=== PATIENT | female | born 1980 | race Caucasian/White ===

== ENCOUNTER 2024-12-12 09:07 | Inpatient (IN) | payer OTHER, SELFPAY ==
[2024-12-12] VITALS (20 sets, daily range): BP systolic 107–172; BP diastolic 59–102; PULSE 56–89; RESP 14–24; TEMP 36.2–37; O2SAT 86–100; BMI 25.8
--- OUTSIDE RECORDS SUMMARY | 2024-12-12 09:09 | XMS_ITS | Clinical Summary ---
Author Organization [facility] Address [address] [place] [address] Care Team Providers Care Senior Scheduler Name Role Phone No Ref-Primary, Physician Primary Care Provider Allergies Active Allergy Reactions Criticality Noted Date Comments Hydromorphone Other (See Comments) 02/25/2016 Medications famotidine (PEPCID) 10 MG tablet Take 10 mg by mouth daily Active acetaminophen-ca ff-pyrilamine (MIDOL MENSTRUAL) 500-60-15 MG TABS per tablet Take 1-2 tablets by mouth 2 times daily Active folic acid (FOLVITE) 1 MG tabletIndication s:Alcohol-induce d acute pancreatitis, unspecified complication status,Nausea and vomiting, unspecified vomiting type,Moderate episode of recurrent major depressive disorder (H),Alcohol use disorder, severe, dependence (H) Take 1 tablet (1 mg) by mouth daily 30 tablet 4 Active melatonin 5 MG tabletIndication s:Alcohol-induce d acute pancreatitis, unspecified complication status,Nausea and vomiting, unspecified vomiting type,Moderate episode of recurrent major depressive disorder (H),Alcohol use disorder, severe, dependence (H) Take 1 tablet (5 mg) by mouth every evening 30 tablet 4 Active multivitamin w/minerals (THERA-VIT-M) tabletIndication s:Alcohol-induce d acute pancreatitis, unspecified complication status,Nausea and vomiting, unspecified vomiting type,Moderate episode of recurrent major depressive disorder (H),Alcohol use disorder, severe, dependence (H) Take 1 tablet by mouth daily 30 tablet 4 Active polyethylene glycol (MIRALAX) 17 GM/Dose powderIndication s:Alcohol-induce d acute pancreatitis, unspecified complication status,Nausea and vomiting, unspecified vomiting type,Moderate episode of recurrent major depressive disorder (H),Alcohol use disorder, severe, dependence (H) Take 17 g by mouth daily 510 g 4 Active senna-docusate (SENOKOT-S/PERIC OLACE) 8.6-50 MG tabletIndication s:Alcohol-induce d acute pancreatitis, unspecified complication status,Nausea and vomiting, unspecified vomiting type,Moderate episode of recurrent major depressive disorder (H),Alcohol use disorder, severe, dependence (H) Take 1 tablet by mouth 2 times daily as needed for constipation 60 tablet 4 Active Active Problems Problem Noted Date Diagnosed Date Alcohol-induced acute pancre atitis, unspecified complication status 04/27/2024 Nausea and vomiting, unspecified vomiting type 0 04/27/2024 Moderate episode of recurrent major depressive d isorder 10/10/2016 Narcotic addiction 09/15/2016 Pancreatitis 07/14/2016 Acute pancreatitis 07/14/2016 CARDIOVASCULAR SCREENING; LDL GOAL LESS THAN 160 07/17/2010 Back pain 01/04/2010 Encounter for supervision of other normal pregna ncy 08/31/2009 Overview (07/19/2015): Diagnosis updated by automated process. Provider to review and confirm. History of migraine during 07/23/2009 Family History Medical History Relation Comments Hypertension Maternal Grandmother Relation Status Comments Maternal Grandmother Social History Tobacco Use Types Packs/Day Years Used Date Smoking Tobacco: Every Day Cigarettes Smokeless Tobacco: Never Comments:3 or 4 a day. 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 Gender Identity Not on file Sexual Orientation Not on file Last Filed Vital Signs Vital Sign Reading Time Taken Comments Blood Pressure 142/88 05/02/2024 5:32 PM CDT Pulse 86 05/02/2024 5:32 PM CDT Temperature 36.8 C (98.3 F) 05/02/2024 5:32 PM CDT Respiratory Rate 20 05/02/2024 5:32 PM CDT Oxygen Saturation 98% 05/02/2024 8:09 AM CDT Inhaled Oxygen Concentration - - Weight 78.9 kg (173 lb 15.1 oz) 04/27/2024 8:19 PM CDT Height 177.8 cm (5' 10) 04/27/2024 8:19 PM CDT Body Mass Index 24.96 04/27/2024 8:19 PM CDT Plan of Treatment Health Maintenance Due Date Last Done Comments ADVANCE CARE PLANNING 1978 ANNUAL REVIEW OF HM ORDERS 1978 CT COLONOGRAPHY 1978 FIT 1978 FLEX SIG 1978 MAMMO SCREENING 1978 sDNA (Cologuard) 1978 YEARLY PREVENTIVE VISIT 1981 COLONOSCOPY 01/30/1988 COLORECTAL CANCER SCREENING 01/30/1988 HEPATITIS C SCREENING 01/30/1996 HEPATITIS A IMMUNIZATION (1 of 2 - Risk 2-dose series) 1997 HEPATITIS B IMMUNIZATION (1 of 3 - 19+ 3-dose series) 1997 Pneumococcal Vaccine: Pediatrics (0 to 5 Years) and At-Risk Patients (6 to 49 Years) (1 of 2 - PCV) 1997 PAP 10/22/2016 10/22/2013, 0201/2014, 07/15/2009 PHQ-9 03/16/2017 09/15/2016 LIPID 2018 DTAP/TDAP/TD IMMUNIZATION (2 - Td or Tdap) 09/12/2023 09/12/2013 COVID-19 Vaccine ( - season) 2024 INFLUENZA VACCINE (#1) 2024 08/19/2013 DIABETES SCREENING 05/02/2027 05/02/2024, 0 04/30/2024, 04/28/2024, Additional history exists ZOSTER IMMUNIZATION (1 of 2) 01/30/2028 HIV SCREENING Completed 07/13/2009 DEPRESSION ACTION PLAN Completed 10/25/2016 HPV IMMUNIZATION Aged Out No longer e ligible based on patient's age to complete this topic MENINGITIS IMMUNIZATION Aged Out No l onger eligible based on patient's age to complete this topic Procedures Procedure Name Priority Date/Time Associated Diagnosis Comments COMPREHENSIVE METABOLIC PANEL Add-On 05/02/2024 6:51 AM CDT PAP SMEAR - HIM PATIENT REPORTED Routine 10/22/2013 HCL HIV 1 & 2 ANTIBODY Routine 9 11:43 AM CDT Supervision of Other Normal from Last 3 Months or Most Recently Relevant to Health Maintenance Results * (ABNORMAL) Comprehensive metabolic panel (05/02/2024 6:51 AM CDT) Sodium 134(L) 135 - 145 mmol/L 05/02/2024 10:18 AM CDT [facility] Potassium 3.8 3.4 - 5.3 mmol/L 05/02/2024 10:18 AM CDT [facility] Carbon Dioxide (CO2) 21(L) 22 - 29 mmol/L 05/02/2024 10:18 AM CDT [facility] Anion Gap 16(H) 7 - 15 mmol/L 05/02/2024 10:18 AM CDT [facility] Urea Nitrogen 3.2(L) 6.0 - 20.0 mg/dL 05/02/2024 10:18 AM CDT [facility] Creatinine 0.43(L) 0.51 - 0.95 mg/dL 05/02/2024 10:18 AM CDT [facility] GFR Estimate >90 >60 mL/min/1.7 3m2 05/02/2024 10:18 AM CDT [facility] Comment:eGFR calculated usin 2020 CKD-EPI equation. Calcium 8.9 8.8 - 10.4 mg/dL 05/02/2024 10:18 AM CDT [facility] Comment:Reference intervals for this test were updated on 04/01/2024 to reflect our healthy population more accurately. There may be differences in the flagging of prior results with similar values performed with this method. Those prior results can be interpreted in the context of the updated reference intervals. Chloride 97(L) 98 - 107 mmol/L 05/02/2024 10:18 AM CDT [facility] Glucose 87 70 - 99 mg/dL 05/02/2024 10:18 AM CDT [facility] Alkaline Phosphatase 152(H) 40 - 150 U/L 05/02/2024 10:18 AM CDT [facility] AST 46(H) 0 - 45 U/L 05/02/2024 10:18 AM CDT [facility] ALT 73(H) 0 - 50 U/L 05/02/2024 10:18 AM CDT [facility] Protein Total 6.5 6.4 - 8.3 g/dL 05/02/2024 10:18 AM CDT [facility] Albumin 3.6 3.5 - 5.2 g/dL 05/02/2024 10:18 AM CDT [facility] Bilirubin Total 1.1 <=1.2 mg/dL 05/02/2024 10:18 AM CDT [facility] Blood STRUCTURE OF LEFT HAND / Unknown Venipuncture / Unknown 05/02/2024 6:51 AM CDT 05/02/2024 7:14 AM CDT us Jayce Gooden MD LAB - BLOOD ORDERABLES Final Res ult [facility] [address] [facility] (1st floor, no room number) [place] [address] * PAP Smear - HIM Patient Reported (10/22/2013) PAP Smear - HIM Patient Reported Negative EXTERNAL LAB 10/22/2013 Narrative EXTERNAL LAB - 10/22/2013 Please abstract the following data from this visit with this patient into the appropriate field in Epic: Pap smear done on this date: 10/22/13 (approximately), by this group: [facility] , results were Normal. us Patient Reported LABORATORY Final Result EXTERNAL LAB External Lab * HIV 1 & 2, SCREEN (07/13/2009 11:43 AM CDT) HIV 1&2 Antibody Negative [facility] 07/13/2009 11:4 3 AM CDT 07/13/2009 11:48 AM CDT us Payam Cardenas MD LABORATORY Final Result [address] [address] from Last 3 Months or Most Recently Relevant to Health Maintenance Insurance [facility] Advance Directives For more information, please contact: [phone] * Full Code (Latest Code Status on File) Date Activated Date Inactivated Comments 04/27/2024 11:22 PM 05/02/2024 8:01 PM All basic a nd advanced life-sustaining interventions are performed as appropriate Question Answer Comments Code status determined by: Discussion with patie nt/ legal decision maker * Full Code Date Activated Date Inactivated Comments 07/14/2016 6:32 AM 07/17/2016 6:56 PM Care Teams Senior Scheduler Relationship Specialty Start Date End Date No Ref-Primary, Physician PCP - General 05/01/24
--- OUTSIDE RECORDS SUMMARY | 2024-12-12 09:09 | XMS_ITS | Continuity of Care Document ---
Author Organization [facility] Address [address] [place] [address] [place] [address] Phone Care Team Providers Care Chainman Name Role Phone Will MD RAZA, Lenard Unavailable Unavailabl e Allergies, Adverse Reactions, Alerts Substance Reaction Status Criticality HYDROMORPHONE HCL Active No Informa tion Medications Medication Instructions Dosage Effective Dates (start - stop) Status Comments Neurontin 600 mg Tab 600 MG - Active Zoloft 100 mg Tab 100 MG - Active Flexeril 5 mg Tab - Active Valium 5 mg Tab - Active Chantix 1 mg Tab - Active FAMOTIDINE (unknown strength) Not Available - Active senna 8.6 mg Tab - Active calcium 500 mg Tab - Active VITAMIN D3 (unknown strength) Not Available - Active VITAMIN B-6 (unknown strength) Not Available - Active Procedures Procedure Date OFFICE/OUTPATIENT VISIT, EST Cancelled Appt Fee NEUROMUSCULAR REEDUCATION THERAPEUTIC EXERCISES OFFICE/OUTPATIENT VISIT, EST MANUAL THERAPY NEUROMUSCULAR REEDUCATION THERAPEUTIC EXERCISES PSYTX, OFF, 45-50 MIN OFFICE/OUTPATIENT VISIT, EST NEUROMUSCULAR REEDUCATION PT EVALUATION THERAPEUTIC EXERCISES PSY DX INTERVIEW OFFICE/OUTPATIENT VISIT, EST OFFICE/OUTPATIENT VISIT, EST OFFICE/OUTPATIENT VISIT, [facility] Advance Directives Directive Yes / No Effective Date File Name No Information Encounters Encounter Description Practice Location Reason(s) For Visit Diagnoses Date Provider Providers Copied on Encounter [facility], [address] [facility] [place], [place], [id number], [place] tel:[phone] [facility] [place] No Information 2 Will Lenard. [address] [place] [address] [place], [id number], [place]. tel:[phone] OFFICE/OUTPAT IENT VISIT, EST [facility], [address] [place] [address] [place], [place], [id number], [place] tel:[phone] [facility] [place] low back pain (chief complaint) Lumbago 2 Will Lenard. [address] [facility] [place], [place], [id number], [place]. tel:[phone] Referring Provider: Lenard Rodríguez, [address] [place] [address] [place], [address] . tel:[phone] [facility], [address] [place] [address] [place], [place], [id number], [place] tel:[phone] [place] [address] [facility] [place] No Information 2 No Information Referring Provider: Lenard Rodríguez, [address] [place] [address] [place], [address] . tel:[phone] [facility], [address] [place] [address] [place], [place], [id number], [place] tel:[phone] [facility] [place] back pain (chief complaint) No Information No Information Referring Provider: Lenard Rodríguez, [address] [place] [address] [place], [address] . tel:[phone] OFFICE/OUTPAT IENT VISIT, EST [facility], [address] [place] [address] [place], [place], [id number], [place] tel:[phone] [facility] [place] low back pain (chief complaint) Lumbago 2 [facility]. [facility] [place], [id number], [place]. tel:[phone] Referring Provider: Lenard Rodríguez, [address] [place] [address] [place], [address] . tel:[phone] [facility], [address] [place] [address], [id number], [place] tel:[phone] [facility] [place] back pain (chief complaint) No Information 2 No Information Referring Provider: Lenard Rodríguez, [address] [place], [place] [address], [address] . tel:[phone] [facility], [address] [place] [address], [id number], [place] tel:[phone] [facility] [place] Major depressive affective disorder, single episode, in partial or unspecified remissionOther , pain disorder related to psychological factors 2 Anamaria Dominguez. [address] [place] [address], [id number], [place]. tel:[phone] Referring Provider: Lenard Rodríguez, [address] [place], [place] [address], [address] . tel:[phone] OFFICE/OUTPAT IENT VISIT, EST [facility], [address] [place] [address], [id number], [place] tel:[phone] [facility] [place] low back pain (chief complaint) Lumbago 2 Will Lenard. [address] [place] [address], [id number], [place]. tel:[phone] Referring Provider: Lenard Rodríguez, [address] [place], [place] [address], [address] . tel:[phone] [facility], [address] [place] [address], [id number], [place] tel:[phone] [facility] [place] back pain (chief complaint) No Information 2 No Information Referring Provider: Lenard Rodríguez, [address] [place], [place] [address], [address] . tel:[phone] [facility], [address] [place] [address], [id number], [place] tel:[phone] [facility] [place] Major depressive affective disorder, single episode, in partial or unspecified remissionOther , pain disorder related to psychological factors 2 Anamaria Dominguez. [address] [place] [address], [id number], [place]. tel:[phone] Referring Provider: Lenard Rodríguez, [address] [place] [address] [place], [address] . tel:[phone] OFFICE/OUTPAT IENT VISIT, [facility], [address] [place] [address], [id number], [place] tel:[phone] [facility] [place] low back pain (chief complaint) Lumbago 2 Will Lenard. [address] [place] [address], [id number], [place]. tel:[phone] Referring Provider: Lenard Rodríguez, [address] [place], [place] [address], [address] . tel:[phone] OFFICE/OUTPAT IENT VISIT, [facility], [address] [place] [address], [id number], [place] tel:[phone] [facility] [place] low back pain (chief complaint) Lumbago 2 Will Lenard. [address] [place] [address], [id number], [place]. tel:[phone] Referring Provider: Lenard Rodríguez, [address] [place], [place] [address], [address] . tel:[phone] OFFICE/OUTPAT IENT VISIT, [facility], [address] [place] [address], [id number], [place] tel:[phone] [facility] [place] low back pain (chief complaint) Lumbago 2 Will Lenard. [address] [place] [address], [id number], [place]. tel:[phone] Referring Provider: Lenard Rodríguez, [address] [place], [place] [address], [address] . tel:[phone] Family History Family Member Type Diagnosis Age At Onset Mother Problem (finding) back pain after trauma Sister Problem (finding) back pain after trauma Payers Payer name Insurance type Covered republican ID Chalino hawkins(danielle) [employer] [id number] Social History Type Description Quantity Date Captured Comments Sex Female Smoking Status No Information Chief Complaint And Reason For Visit No Information Reason For Referral Reason For Referral No Information History Of Present Illness Encounter Date Complaint History Of Prese nt Illness No Information Functional Status Date Functional Assessmen t No Information Instructions Date Instruction Additional Infor mation Change medication Medications counted, patient has self-escalated dose. Continue current medication Medications counted, patient has self-escalated dose. Continue current medication Medications counted, patient has self-escalated dose. Continue current medication Medications counted, patient is on track. New medication is prescribed Depression Screen Oswestry Score Assessments Type Assessment Date No Information Patient Care Teams Name Effective Dates (start - stop) Status Members No Information
--- OUTSIDE RECORDS SUMMARY | 2024-12-12 09:09 | XMS_ITS | Continuity of Care Document ---
Author Organization [facility] Address [address] [place] [address] Phone Care Team Providers Care Recycler Name Role Phone Unavailable Unavailable Unavailable Medications Medication Instructions Dosage Effective Dates (start - stop) Status Comments oxycodone 5 mg tablet takes as needed. - Active tramadol 50 mg tablet takes as needed. - Active sertraline 100 mg Tab take 1 Tablet (100MG) by ORAL route every day 100 MG - Active acetaminophen 500 mg Cap take 4 Capsule (2000MG) by ORAL route every day as needed 2000 MG - Active gabapentin 800 mg Tab take 1 Tablet by Oral route 3 times every day 1 Tablet - Active oxycodone 5 mg tablet take 1 tablet by oral route every 8 hours as needed - No Longer Active Procedures Procedure Date Offic/outpt E&m Estab Mod-al 2 14 Offic/outpt [facility] 3 Offic/outpt E&m Estab Mod-al 2 13 Offic/outpt E&m Estab Mod-al 2 13 Offic/outpt E&m Estab Lowmod 3 Offic/outpt E&m Estab Lowmod 3 Offic/outpt E&m Estab Lowmod 3 Inject SI Joint Arthrography Lo Osm Contr Mat (200-249mg) Depomedrol 80mg Offic/outpt E&m Estab Mod-hi 2 13 Drug Screen: Mx Drug Classes Handl/convey Specmn-offic To L 13 Offic/outpt E&m Estab Mod-hi 2 13 Inj Anes Facet Jt; Lumb/sac-1st Level Ap Inj Anes Facet Jt; Lumb/sac-2nd Level Ap Lo Osm Contr Mat (200-249mg) Offic/outpt E&m Estab Low-mod 3 Offic/outpt E&m Estab Mod-hi 2 13 Offic/outpt E&m Estab Mod-hi 2 13 Inj Anes Facet Jt; Lumb/sac-2nd Level Ja Inj Anes Facet Jt; Lumb/sac-1st Level Ja Depomedrol 80mg Offic/outpt E&m Estab Mod-hi 2 12 Inject SI Joint Arthrography Lo Osm Contr Mat (200-249mg) Depomedrol 80mg Offic/outpt E&m Estab Low-mod 2 Offic Cons New/estab Mod-hi 60 12 QA DONE Advance Directives Directive Yes / No Effective Date File Name No Information Encounters Encounter Description Practice Location Reason(s) For Visit Diagnoses Date Provider Providers Copied on Encounter Offic/outpt E&m Estab Mod-hi [address] [facility], [address], [place], [place], [id number], tel:[phone] [facility] No Information 4 No Information Referring Provider: Faith Rivers MD P, [address] [place], [address]. tel:[phone] Offic/outpt E&m Estab Low-mod [facility], [address], [place], [place], [id number], tel:[phone] [facility] No Information 3 No Information Referring Provider: Faith Rivers MD P, [address] [place], [address]. tel:[phone] Offic/outpt E&m Estab Mod-hi 2 [facility], [address], [place], [place], [id number], [place] tel:[phone] [facility] No Information 3 No Information Referring Provider: Faith Rivers MD P, [address] [place], [address]. tel:[phone] Offic/outpt E&m Estab Mod-hi 2 [facility], [facility], [address] [facility] [address] [place], [place], [id number], [place] tel:[phone] [facility] No Information 3 No Information Referring Provider: Faith Rivers MD P, [address] [place], [address]. tel:[phone] Offic/outpt E&m Estab Low-mod [facility], [facility], [address], [place], [place], [id number], [place] tel:[phone] [facility] No Information 3 No Information Referring Provider: Faith Rivers MD P, [address] [place], [address]. tel:[phone] Offic/outpt E&m Estab Low-mod [facility], [facility], [address], [place], [place], [id number], [place] tel:[phone] [facility] No Information 3 Mindi Burden. [address] [place] [address], [address]. tel:[phone] Referring Provider: Faith Rivers MD P, [address] [place], [address]. tel:[phone] Offic/outpt E&m Estab Low-mod [facility], [facility], [address], [place], [place], [id number], [place] tel:[phone] [facility] No Information 3 Mindi HOME INSPECTOR Jenise. [address] [place], [address]. tel:[phone] Referring Provider: Faith Rivers MD P, [address] [facility] [place], [address]. tel:[phone] [facility], [facility], [address], [place], [place], [id number], [place] tel:[phone] [facility] No Information 3 Jey Kevin. [address], [place], [id number], [place]. tel:[phone] Referring Provider: Faith Rivers MD P, [address] [facility] [place], [address]. tel:[phone] Offic/outpt E&m Estab Mod-hi [address] [facility], [facility], [address], [place], [place], [id number], [place] tel:[phone] [facility] No Information 3 Michael Herring. [address] [place], [address], [place]. Referring Provider: Faith Rivers MD P, [address] [facility] [place], [address]. tel:[phone] Offic/outpt E&m Estab Mod-hi [address], [facility], [address], [place], [place], [id number], [place] tel:[phone] [facility] No Information 3 Mindi Burden. [address] [place], [address]. tel:[phone] Referring Provider: Faith Rivers MD P, [address] [place], [address]. tel:[phone] [facility] [address], [place], [place], [id number], [place] tel:[phone] [facility] No Information 3 Jey Kevin. [address], [place], [place], [id number], [place]. tel:[phone] Referring Provider: Faith Caballero, [address] [place], [address]. tel:[phone] Offic/outpt E&m Estab Low-mod [facility], [address], [place], [place], [id number], [place] tel:[phone] [facility] No Information 3 [place] HOME INSPECTOR Jenise. [address] [place], [address]. tel:[phone] Referring Provider: Faith Caballero, [address] [place], [address]. tel:[phone] Offic/outpt E&m Estab Mod-hi 2 [facility], [address], [place], [place], [id number], [place] tel:[phone] [facility] No Information 3 Mindi HOME INSPECTOR Jenise. [address] [place], [address]. tel:[phone] Referring Provider: Faith Rivers MD P, [address] [place], [address]. tel:[phone] Offic/outpt E&m Estab Mod-hi 2 [facility], [address], [place], [place], [id number], [place] tel:[phone] [facility] No Information 3 Mindi Burden. [address] [place] [address], [address]. tel:[phone] Referring Provider: Faith Caballero, [address] [place], [address]. tel:[phone] [facility], [address], [place], [place], [id number], [place] tel:[phone] [facility] No Information 3 Jey Kevin. [address], [place], [place], [id number], [place]. tel:[phone] Referring Provider: Faith Caballero, [address] [place], [address]. tel:[phone] Offic/outpt E&m Estab Mod-hi [address], [facility], [address], [place], [place], [id number], [place] tel:[phone] [facility] No Information 2 Mindi Burden. [address] [place] [address], [address]. tel:[phone] Referring Provider: Faith Caballero, [address] [place], [address]. tel:[phone] [facility], [address], [place], [place], [id number], [place] tel:[phone] [facility] No Information 2 Uriel Church. [address], [place], [place], [id number]. tel:[phone] Referring Provider: Faith Caballero, [address] [place], [place], [address]. tel:[phone] Offic/outpt E&m Estab Low-mod [facility], [facility], [address], [place], [place], [id number], [place] tel:[phone] [facility] No Information 2 Mindi GOLDSMITH Jenise. [address] [place], [address]. tel:[phone] Referring Provider: Faith Rivers MD P, [address] [place], [address]. tel:[phone] Offic Cons New/estab Mod-hi [address], [facility], [address], [place], [place], [id number], tel:[phone] [facility] No Information 2 Michael Herring. [address] [place], [address], [place]. Referring Provider: Faith Rivers MD P, [address] [place], [address]. tel:[phone] Family History Family Member Type Diagnosis Age At Onset No Information Payers Payer name Insurance type Covered libertarian ID Chalino hawkins(s) [facility] [id number] Social History Type Description Quantity Date Captured Comments Alcohol Use Details Caffeine Use Details Unknown Tobacco Use Status No Information Smoking Status Smoker, current stat unknown Non-Smoking Tobacco Use Details : No Details Available : No Details Available Sex Female Chief Complaint And Reason For Visit No Information Reason For Referral Reason For Referral No Information History Of Present Illness Encounter Date Complaint History Of Prese nt Illness No Information Functional Status Date Functional Assessmen t No Information Instructions Date Instruction Additional Infor mation No Information Assessments Type Assessment Date No Information Patient Care Teams Name Effective Dates (start - stop) Status Members No Information
--- OUTSIDE RECORDS SUMMARY | 2024-12-12 09:09 | XMS_ITS | Clinical Summary ---
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 1 Device 0 5 Active oxyCODONE 10 mg tablet Take 10 mg by mouth every 6 hours if needed for Pain. Active tiZANidine (ZANAFLEX) 2 mg tablet Take 2-4 mg by mouth. PRN BID Active gabapentin (NEURONTIN) 300 mg capsule 3 6 Active amoxicillin (AMOXIL) 500 mg capsuleIndicatio ns:H/O oral surgery Take 1 capsule by mouth 3 times daily. 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 Designated pharmacy: [facility] Prescribing physician: Silvestre Diagnosis: chronic low back pain Placenta, retained 02/25/2010 Abnormal head MRI 05/26/2009 Overview (05/26/2009): congenital vein malformation Tobacco use disorder 10/02/2008 Scoliosis (and kyphoscoliosis), idiopathic 04/09 Backache, unspecified Overview (04/09/2008): cervical and lumbar, 2006 Resolved Problems Problem Noted Date Diagnosed Date Resolved Date Other anxiety states 05/29/2012 012 Unspecified episodic mood disorder 05/21/2012 05/29/2012 Overview (05/21/2012): Rule out full spectrum Bipolar II Immunizations Immunization Administration Dates Next Due Influenza, IIV3 (Age >=3 years) 08/19/2013 Tdap 09/12/2013 Family History Medical History Relation Name Comments Alcohol/Drug Brother 4 Psychiatric illness Father Depressi on Psychiatric illness Maternal Aunt Depress ion Psychiatric illness Maternal Grandmother Depression Alcohol/Drug Maternal Uncle Psychiatric illness Mother ?mood d/ o Genetic Other mom, father dep ression, HTN~brother CD~MGF colon CA~MGM CAD~PGF DM2 Psychiatric illness Sister 2 BPAD II Relation Name Status Comments Brother 1 Alive Brother 2 Alive Brother 3 Alive Brother 4 Child Alive x 2 Father (Age 48) stroke Maternal Aunt Maternal Grandmother Maternal Uncle Mother Alive Other Sister 1 Alive Sister 2 Social History Tobacco Use Types Packs/Day Years Used Date Smoking Tobacco: Every Day Cigarettes Smokeless Tobacco: Never Tobacco Cessation:Ready to Q uit: Yes; Counseling Given: Yes Comments:Outside the home Alcohol Use Standard Drinks/Week Comments Yes 0 (1 standard drink = 0.6 oz pure alcohol) Rare drink not to intoxication, use as negative impacts mood, 3 DUIs last in 2008 (no ongoing legal issues), vol CD tx x1 Comments No Sex and Gender Information Value Date Recorded Sex Assigned at Not on file Legal Sex Female 5:25 AM SCALP SPECIALIST Gender Identity Not on file Sexual Orientation Not on file Obstetrics History Para Term AB IAB SAB Ectopic Multiple Livin g Live Births 1 1 1 0 0 0 0 0 0 1 Date Outcome GA Total Labor Labor/2nd/3rd Weight Sex Type Anes PTL Kaelyn A1 A5 Name Clin Term Last Filed Vital Signs Vital Sign Reading Time Taken Comments Blood Pressure 145/83 03/06/2016 4:19 PM CDT Pulse 109 03/06/2016 4:19 PM CDT Temperature 36.6 C (97.8 F) 12/11/2014 7:25 PM CDT Respiratory Rate 16 12/11/2014 7:25 PM CDT Oxygen Saturation 96% 12/11/2014 7:25 PM CDT Inhaled Oxygen Concentration - - Weight 101.7 kg (224 lb 4.8 oz) 03/06/2016 4:19 PM CDT Height 177.8 cm (5' 10) 10/22/2013 1:46 PM SCALP SPECIALIST Body Mass Index 32.18 10/22/2013 1:46 PM SCALP SPECIALIST Plan of Treatment Health Maintenance Due Date Last Done Comments Depression screening for age 12+ 1990 HIV for age 15-65 1993 BMI (ht and wt on same day) for age 18+ 01/30/1996 Hepatitis C screening for age 18-79 01/30/1996 Pap test for age 21-65 10/22/2016 4, 04/23/2009, 04/09/2008, Additional history exists Colonoscopy through age 75 2023 Lipids for age 45-75 2023 Mammogram for age 45-75 2023 Tetanus booster 09/12/2023 09/12/2013 COVID-19 vaccine series (2023- season) 2024 Influenza Vaccine (#1) 2024 08/19/2013 Tdap Completed 09/12/2013 Pneumococcal series for age 6-49 Aged Out No longer eligible based on patient's age to complete this topic Medical Devices Implanted Type Area Pharmacists Device Identifier Shelf Expiration Date Model / Serial / Lot Kit Infuse - [id number] Implanted:Qty: 1 on 12/15/2011 at [facility] Bilateral: Lumbar Vertebrae [employer] 07/17/2014 [id number]# / / [id number] Capstone 8x22 - S- Implanted:Qty: 1 on 12/15/2011 at [facility] Bilateral: Lumbar Vertebrae [employer] 06/02/2018 [id number]# / - / [id number] Capstone 12x22 - [id number] Implanted:Qty: 1 on 12/15/2011 at [facility] Bilateral: Lumbar Vertebrae [employer] 07/23/2018 [id number]# / / [id number] Screw Sextant 6.5x35 - [id number] Implanted:Qty: 2 on 12/15/2011 at [facility] Bilateral: Lumbar Vertebrae [employer] [id number]# / / - Description:load # [id number] Screw Sextant 6.5x40mm - [id number] Implanted:Qty: 2 on 12/15/2011 at [facility] Bilateral: Lumbar Vertebrae [employer] [id number]# / / - Description:load [id number] Set Screw Sextant - [id number] Implanted:Qty: 4 on 12/15/2011 at [facility] [employer] [id number]# / / - Description:load [id number] Jayro Sextant 65mm Ti - [id number] Implanted:Qty: 2 on 12/15/2011 at [facility] Bilateral: Lumbar Vertebrae [employer] [id number]# / / - Description:load [id number] Procedures Procedure Name Priority Date/Time Associated Diagnosis Comments 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 PAP SCREEN IMAGED Routine 10/22/2013 2:24 PM SCALP SPECIALIST Screening for cervical cancer from Last 3 Months or Most Recently Relevant to Health Maintenance Results * 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 PREP PAP SCREEN IMAGED (10/22/2013 2:24 PM SCALP SPECIALIST) CYTOLOGY CYTOPATHOLOGY REPORT [facility] Status: Final Status [id number] CLINICAL INFORMATION Last Date of LMP :10/09/13 Last Pap Date :04/23/2009 Last Pap Result :NIL ABN [place]/Bx Past 5 YRS :None Hormone Usage :None Menstrual Status :Regular Periods [place]/Bx done today :No Additional Information :None given HPV Request :HPV if ASCUS SPECIMEN SOURCE :Cervical/vaginal ThinPrep Vial, screening SPECIMEN ADEQUACY :Satisfactory for evaluation Endocervical component present. INTERPRETATION/RES ULT Negative for intraepithelial lesion or malignancy (NIL) Cytology 1st Screener :caitlyn Signed by :caitlyn This specimen was screened by the FDA approved ThinPrep Imaging System and manually reviewed. NOTE: The Pap test is a screening technique, not a diagnostic procedure. It is used primarily to screen for squamous cancers and precursor lesions. Published studies have shown that it is subject to both false negative and false positive results. The pap test should not be used as the sole means to diagnose or exclude pre-malignant and malignant lesions. COLLECTED:10/22/13 ACCESSIONED: 10/23/13 SIGNED: 10/29/13 [facility] [place] CODE NIL [facility] Tissue specimen (specimen) (Cervical/Vagina l) 10/22/2013 2:24 PM SCALP SPECIALIST 10/22/2013 2:23 PM SCALP SPECIALIST us Faith Rivers MD PATHOLOGY/CYTOLOGY Final Resul t [facility] [place]NAL [place]IP [id number] [place] [address] from Last 3 Months or Most Recently Relevant to Health Maintenance Insurance [employer] Advance Directives * Full Code (Latest Code Status on File) Date Activated Date Inactivated Comments 12/15/2011 4:06 PM 12/19/2011 3:22 PM * Full Code Date Activated Date Inactivated Comments 12/15/2011 3:54 AM 12/15/2011 4:06 PM 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 PCP - General 01/08/17
[2024-12-12] MEDS: ONDANSETRON 2 MG/ML inj 4 MG IVP (09:22)
[2024-12-12] MEDS: fentaNYL 100 MCG/2 ML inj 50 MCG IVP ×3 (09:24→13:04)
[2024-12-12 09:33] LABS: Basophils Percent Auto 0.1 % (0.0-3.0); Eosinophils Percent Auto 0.5 % (0.0-7.0); Hematocrit 40.1 % (33.0-51.0); Hemoglobin* 13.1 gm/dL (12.0-16.0); Immature Granulocytes Pct Auto 0.2 %; Lymphocytes Percent Auto 12.6 % (20-44); Mean Corpuscular HGB Conc 33 gm/dL (32-36); Mean Corpuscular Hemoglobin 33 pg (26-34); Mean Corpuscular Volume 102 fL (80-100); Monocytes Percent Auto 5.6 % (0.0-11.0); Platelet Count* 295 K/uL (140-440); Red Blood Count 3.92 m/uL (4.00-5.20)
[2024-12-12 09:34] LABS: Slide Review Reflex No
[2024-12-12 09:35] LABS: HCO3 VBG 27 mmol/L (21-28); Lactate* 3.7 mmol/L (0.5-1.9); PCO2 VBG 45 mmHG (40-50); PO2 VBG < 30.1 mmHG (25-47); pH VBG 7.382 (7.32-7.43)
[2024-12-12 09:52] LABS: Albumin* 4.3 g/dL (3.3-5.0); Chloride* 99 mmol/L (96-114)
--- NOTE | 2024-12-12 09:52 | CRLHL7_ITS ---
For Patients: As a result of the Century Cures Act, medical imaging exams and procedure reports are released immediately into your electronic medical record. You may view this report before your referring provider. If you have questions, please contact your health care provider. INDICATION: Upper abdominal and back pain TECHNIQUE: Axial images were obtained from the diaphragm to the pubic symphysis. Reformats were obtained in the coronal and sagittal plane. IV Contrast: 89 cc Isovue 370 Oral Contrast: None COMPARISON: None. FINDINGS: Lower chest: Calcified granuloma right middle lobe. Liver: Normal in contour with focal fat adjacent to the falciform ligament and gallbladder fossa. Gallbladder and bile ducts: Unremarkable. No stones or inflammation. No biliary dilatation. Spleen: Calcifications in the spleen consistent with old granulomatous disease. Pancreas: Fat stranding surrounding the pancreas with free fluid in the pancreatic bed extending into the left pericolic gutter. Exophytic cyst at the superior margin of the pancreatic head measuring 2.8 centimeters (series 2, image 52; series 4, image 33). Adrenal glands: Unremarkable. No nodules. Kidneys: Unremarkable. No masses, stones, or hydronephrosis. Vasculature: No abdominal aortic aneurysm. Superior mesenteric vein and portal vein patent. Mild narrowing of the distal splenic vein although the splenic vein is still patent. GI tract: The stomach is unremarkable. No dilated loops of large or small intestine. Status post ventral mesh in the epigastric region. Pelvis: Intrauterine device present. Bones: Status post L4 through S1 posterior fusion. IMPRESSION: Peripancreatic edema and fat stranding consistent with acute interstitial pancreatitis. Cystic lesion at the superior margin of the pancreatic head measuring 2.8 centimeters consistent with a pancreatic cyst or chronic pseudocyst. Please note that all CT scans at this facility use dose modulation, iterative reconstruction, and/or weight-based dosing when appropriate to reduce radiation dose to as low as reasonably achievable. Dictated by Efrem Junior MD @ 12/12/2024 10:56:20 AM (Electronically Signed)
[2024-12-12 09:53] LABS: Potassium* 3.6 mmol/L (3.6-5.1); Sodium* 136 mmol/L (135-149)
[2024-12-12 09:55] LABS: Blood Urea Nitrogen* 8 mg/dL (5-24); Creatinine* 0.5 mg/dL (0.5-1.5); Est. Creatinine Clearance* 152.03; Estimated Glomerular Filt Rate 117 ml/min
[2024-12-12 09:56] LABS: Alanine Aminotransferase* 35 U/L (4-35); Alkaline Phosphatase* 60 U/L (40-150); Anion Gap 11 mEq/L (7-15); Aspartate Amino Transferase* 44 U/L (12-35); Bilirubin Direct* 0.2 mg/dL (0.0-0.5); Bilirubin Total* 0.9 mg/dL (0.1-1.5); Calcium* 9.2 mg/dL (8.4-10.6); Carbon Dioxide* 26 mmol/L (20-32); Glucose* 166 mg/dL (60-115); Magnesium* 1.2 mg/dL (1.5-2.6); Total Protein* 7.3 g/dL (6.0-8.3)
--- NOTE | 2024-12-12 09:57 | ED.GENADULT ---
HPI - General Adult General Chief complaint: Chest Pain Stated complaint: Chest pain Time Seen by Provider: 12/12/24 09:12 Source: patient Mode of arrival: ambulatory Limitations: no limitations History of Present Illness HPI narrative: 44-year-old female prevents via EMS for epigastric/chest pain that started approximately 2 hours prior to presenting to the ER. Patient states that the pain woke her up out of her sleep. The pain is sharp and central. Nothing makes it better or worse. Patient feels very nauseated. Upon arrival to the ER patient does vomit. Patient states she has never had pain like this before. Patient is writhing and moaning in pain. Complains of pain with deep inspiration. Points to the epigastric region when I ask her where her pain is. Patient tells me that she had a syncopal episode in [facility] and sprain her ankle. Did not hit her head or lose consciousness. Patient states that she has had lumbar surgery before. She takes no medications and denies any medical problems. She states that she was recently in [place] and came back home 4 days ago. States that she has been feeling short of breath on and off for a couple of days. She has not been coughing. Patient does drink alcohol. States that she ?quit for a while?. States that she then went to [place] and had ?some alcohol to drink?. Patient is not forthcoming with how much alcohol she was drinking. Related Data Home Medications ?Medication ?Instructions ?Recorded ?Confirmed famotidine 20 mg tablet (Pepcid) 20 mg PO DAILY 12/12/24 12/12/24 Allergies Allergy/AdvReac Type Severity Reaction Status Date / Time No Known Drug Allergies Allergy Verified 12/12/24 09:33 Review of Systems Status of ROS: Reports: 10 or more systems reviewed and unremarkable except as noted in History and below [facility] Medical History (Updated 12/12/24 @ 14:31 by Liza Jones MD) Pancreatitis ?K85.90 - Acute pancreatitis without necrosis or infection, unspecified (ICD-10) History of narcotic addiction (~09/15/16) ?F11.21 - Opioid dependence, in remission (ICD-10) Moderate episode of recurrent major depressive disorder (10/10/16) ?F33.1 - Major depressive disorder, recurrent, moderate (ICD-10) Alcohol induced acute pancreatitis (04/27/24) ?K85.20 - Alcohol induced acute pancreatitis without necrosis or infection (ICD-10) Left arm numbness (~2014) ?R20.0 - Anesthesia of skin (ICD-10) Alcohol abuse ?F10.10 - Alcohol abuse, uncomplicated (ICD-10) Bipolar disorder, unspecified ?F31.9 - Bipolar disorder, unspecified (ICD-10) Anxiety state, unspecified ?F41.1 - Generalized anxiety disorder (ICD-10) Degenerative disk disease Placenta, retained (~2009) ?O73.0 - Retained placenta without hemorrhage (ICD-10) Abnormal head MRI (~2008) ?R93.0 - Abnormal findings on diagnostic imaging of skull and head, not elsewhere classified (ICD-10) Tobacco use disorder ?F17.200 - Nicotine dependence, unspecified, uncomplicated (ICD-10) Backache, unspecified ?M54.9 - Dorsalgia, unspecified (ICD-10) Scoliosis (and kyphoscoliosis), idiopathic ?M41.20 - Other idiopathic scoliosis, site unspecified (ICD-10) Surgical History (Updated 12/12/24 @ 14:21 by Liza Jones MD) History of removal of ovarian cyst ?Z98.890 - Other specified postprocedural states (ICD-10) ?Z87.42 - Personal history of other diseases of the female genital tract (ICD-10) H/O abdominal surgery (09/15/13) ?Z98.890 - Other specified postprocedural states (ICD-10) History of back surgery (12/15/11) ?Z98.890 - Other specified postprocedural states (ICD-10) Family History (Updated 12/12/24 @ 14:25 by Liza Jones MD) Brother Alcohol dependence High blood pressure Uncle Alcohol dependence Maternal Grandfather Coronary artery disease Maternal Grandmother Colon cancer Paternal Grandfather Type 2 diabetes mellitus Maternal Grandmother Coronary artery disease Depression Father Depression Aunt Depression Social History What is your current living situation?: I presently have a place to live Problems where you live: unable to answer Problems where you live details: NA In the past 12 months, utilities in danger of being shut off: unable to answer In past 12 months, lack of transportation kept you from medical appts, meetings, work, or getting things needed for daily living: unable to answer In the past 12 mos, have been you worried that your food would run out before you had money to buy more?: unable to answer In the past 12 mos, the food you bought just didn't last and you didn't have money to buy more?: unable to answer Smoking Status: Never smoker Do you use any of these nicotine containing products: None How often do you have a drink containing alcohol: 2-4 times a month AUDIT-C Alcohol total score: 2 Non-prescribed substance use: marijuana (any form) How often does anyone, including family, friends and others, physically hurt you: unable to answer How often does anyone, including family, friends and others, insult or talk down to you: unable to answer How often does anyone, including family, friends and others, threaten you with harm: unable to answer How often does anyone, including family, friends and others, scream or curse at you: unable to answer Exam Narrative: Exam Narrative: Well-nourished well-developed patient, yelling and moaning in pain. Alert and oriented. Does answer questions. Thoughts are goal oriented and rational. HEENT: Normocephalic atraumatic. Pupils are equally round reactive to light. Extraocular muscles are intact. Conjunctivae are moist without any icterus noted. Moist mucous membranes. Posterior pharynx is normal. Neck is soft without any lymphadenopathy or thyromegaly. No masses are appreciated. Cardiovascular: Heart is regular rate and rhythm S1 and S2 are present without any murmurs. Lungs: Clear to auscultation bilaterally no wheezes rhonchi or rales are appreciated. Patient takes deep breaths without any discomfort. Abdomen: Soft and nondistended with normal bowel sounds. Patient has epigastric tenderness. Remainder of the abdominal exam is unremarkable. Extremities: Bilateral lower extremities are without edema. Normal DP and PT pulses. Patient has an ankle brace of on the left ankle. Skin: Well perfused without any obvious rashes. Const: Vital Signs, click to edit/add: Vital Signs - 24 hr 12/12/24 09:28 12/12/24 09:29 12/12/24 10:23 Temperature 97.2 F L Pulse Rate [Pulse Oximeter] 80 63 Respiratory Rate 24 Blood Pressure Blood Pressure [Ri ght Upper Arm] 107/63 107/63 124/59 L Pulse Oximetry 99 100 Oxygen Delivery Me thod Room Air 12/12/24 10:30 12/12/24 10:38 12/12/24 11:21 Temperature Pulse Rate [Pulse Oximeter] 56 L Respiratory Rate 20 Blood Pressure Blood Pressure [Ri ght Upper Arm] 125/73 125/73 Pulse Oximetry 100 100 100 Oxygen Delivery Me thod Room Air 12/12/24 11:27 12/12/24 13:23 12/12/24 13:30 Temperature Pulse Rate [Pulse Oximeter] 68 66 Respiratory Rate 16 16 Blood Pressure 158/85 H Blood Pressure [Ri ght Upper Arm] 124/59 L 125/73 Pulse Oximetry 98 97 Oxygen Delivery Me thod Room Air Room Air Course Course ED Course: Upon arrival EKG is done and an IV is established. EKG shows sinus bradycardia with a pulse of 58, otherwise normal EKG. L of normal saline is started. Patient is given fentanyl and Zofran. Patient's lactate returns elevated at 3.7. Point of care troponin is 0. Differential diagnoses considered at this time include a gastric ulceration, ischemic bowel disease, cholecystitis, pancreatitis, acute coronary syndrome. Less likely given the location and characteristics of her symptoms would be PE or aortic dissection. CBC shows a white cell count slightly elevated 12.9, mean cell volume 102, 81% neutrophils. Normal VBG. Normal chemistries. Glucose elevated at 166. Magnesium slightly low 1.2. AST slightly elevated at 44. Normal troponin. Normal CRP. Lipase elevated at 2682. Dilaudid was given for pain, followed by another dose of fentanyl as Dilaudid did not help. Abdominal CT scan was done - consistent with pancreatitis. 2 L of fluids was started. Vital Signs Vital signs: Initial Vital Signs Blood Pressure 107/63 12/12/24 09:28 Blood Pressure Mean 77 12/12/24 09:28 Vital Signs Blood Pressure 107/63 12/12/24 09:28 Temperature 97.2 F L 12/12/24 09:29 Pulse Rate 80 12/12/24 15:05 Respiratory Rate 16 12/12/24 15:05 Blood Pressure 146/92 H 12/12/24 15:05 Pulse Oximetry 96 12/12/24 15:05 Oxygen Delivery Method Room Air 12/12/24 15:05 Medications Administered Medications: Generic Name Dose Route Start Last Admin Trade Name Jordan PRN Reason Stop Dose Admin Hydromorphone HCl 0.5 - 1 mg 12/12/24 14:57 12/12/24 15:02 Hydromorphone 0.5 Mg/0.5 Ml Inj IVP 1 mg Q2H PRN Administration Pain Discontinued Medications Generic Name Dose Route Start Last Admin Trade Name Jordan PRN Reason Stop Dose Admin Fentanyl 50 mcg 12/12/24 09:12 12/12/24 09:24 Fentanyl 100 Mcg/2 Ml Inj IVP 12/12/24 09:13 50 mcg ONCE ONE Administration Fentanyl 50 mcg 12/12/24 11:15 12/12/24 11:19 Fentanyl 100 Mcg/2 Ml Inj IVP 12/12/24 11:16 50 mcg ONCE ONE Administration Fentanyl 50 mcg 12/12/24 12:57 12/12/24 13:04 Fentanyl 100 Mcg/2 Ml Inj IVP 12/12/24 12:58 50 mcg ONCE ONE Administration Hydromorphone HCl 0.5 mg 12/12/24 10:26 12/12/24 10:28 Hydromorphone 0.5 Mg/0.5 Ml Inj IVP 12/12/24 10:27 0.5 mg ONCE ONE Administration Hydromorphone HCl 1 mg 12/12/24 13:45 12/12/24 13:57 Hydromorphone 0.5 Mg/0.5 Ml Inj IVP 12/12/24 13:46 0.5 mg ONCE ONE Administration Sodium Chloride 1,000 mls @ 1,000 mls/hr 12/12/24 09:15 12/12/24 10:25 0.9 % Sodium Chloride 1000 Ml IV 12/12/24 10:14 1,000 mls/hr .Q1H FRIEDA Administration Sodium Chloride 1,000 mls @ 1,000 mls/hr 12/12/24 09:45 12/12/24 11:20 0.9 % Sodium Chloride 1000 Ml IV 12/12/24 10:44 1,000 mls/hr .Q1H FRIEDA Administration Sodium Chloride 1,000 mls @ 1,000 mls/hr 12/12/24 10:30 12/12/24 12:35 0.9 % Sodium Chloride 1000 Ml IV 12/12/24 11:29 1,000 mls/hr .Q1H FRIEDA Administration Ondansetron HCl 4 mg 12/12/24 09:13 12/12/24 09:22 Ondansetron 2 Mg/Ml Inj IVP 12/12/24 09:14 4 mg ONCE ONE Administration Sucralfate 1 gm 12/12/24 09:54 12/12/24 10:37 Sucralfate 1 Gm Tablet PO 12/12/24 09:55 1 gm ONCE ONE Administration Medical Decision Making MDM Narrative Medical decision making narrative: 44-year-old female with pancreatitis. Patient will be admitted once there are beds available. At this time there are not any available so patient will board in the ER until 1 opens up. Lab Data Lab results reviewed: Yes I reviewed the patient's lab results Labs: Lab Results 12/12/24 12/12/24 Range/Units 09:13 09:27 WBC 12.90 H (4.50-11.00) K/uL RBC 3.92 L (4.00-5.20) m/uL Hgb 13.1 (12.0-16.0) gm/dL Hct 40.1 (33.0-51.0) % MCV 102 H (80-100) fL MCH 33 (26-34) pg MCHC 33 (32-36) gm/dL RDW Coeff of [place] 14.0 (11.5-15.5) % Plt Count 295 (140-440) K/uL Neut % (Auto) 81.0 H (42.0-72.0) % Lymph % (Auto) 12.6 L (20-44) % [place] % (Auto) 5.6 (0.0-11.0) % Eos % (Auto) 0.5 (0.0-7.0) % Baso % (Auto) 0.1 (0.0-3.0) % Neut # (Auto) 10.40 H (1.7-7.0) K/uL Lymph # (Auto) 1.60 (0.90-2.90) K/uL [place] # (Auto) 0.70 (0.00-0.90) K/UL Eos # (Auto) 0.10 (0.00-0.50) K/uL Baso # (Auto) 0.00 (0.00-0.30) K/uL Abs Immat Gran (auto) 0.00 (0.00-0.30) K/uL Imm/Tot Granulo (auto) 0.2 % VBG pH 7.382 (7.32-7.43) VBG pCO2 45 (40-50) mmHG VBG pO2 < 30.1 (25-47) mmHG VBG HCO3 27 (21-28) mmol/L Sodium 136 (135-149) mmol/L Potassium 3.6 (3.6-5.1) mmol/L Chloride 99 (96-114) mmol/L Carbon Dioxide 26 (20-32) mmol/L Anion Gap 11 (7-15) mEq/L BUN 8 (5-24) mg/dL Creatinine 0.5 (0.5-1.5) mg/dL Estimated Creat Clear 152.03 Estimated GFR 117 ml/min Glucose 166 H (60-115) mg/dL Lactate 3.7 H (0.5-1.9) mmol/L Calcium 9.2 (8.4-10.6) mg/dL Magnesium 1.2 L (1.5-2.6) mg/dL Total Bilirubin 0.9 (0.1-1.5) mg/dL Direct Bilirubin 0.2 (0.0-0.5) mg/dL AST 44 H (12-35) U/L ALT 35 (4-35) U/L Alkaline Phosphatase 60 (40-150) U/L Troponin I < 0.01 (0.01-0.04) ng/mL C-Reactive Protein < 0.5 L (0.5-1.0) mg/dL NT-Pro-B Natriuret Pep 82 pg/mL Total Protein 7.3 (6.0-8.3) g/dL Albumin 4.3 (3.3-5.0) g/dL Lipase 2682 H (23-300) U/L POC Troponin I 0.00 L (0.01-0.04) ng/ml Imaging Data CT scan - abdomen: Attestation: I have reviewed the pertinent imaging results. Radiologist's impression: TECHNIQUE: Axial images were obtained from the diaphragm to the pubic symphysis. Reformats were obtained in the coronal and sagittal plane. IV Contrast: 89 cc Isovue 370 Oral Contrast: None COMPARISON: None. FINDINGS: Lower chest: Calcified granuloma right middle lobe. Liver: Normal in contour with focal fat adjacent to the falciform ligament and gallbladder fossa. Gallbladder and bile ducts: Unremarkable. No stones or inflammation. No biliary dilatation. Spleen: Calcifications in the spleen consistent with old granulomatous disease. Pancreas: Fat stranding surrounding the pancreas with free fluid in the pancreatic bed extending into the left pericolic gutter. Exophytic cyst at the superior margin of the pancreatic head measuring 2.8 centimeters (series 2, image 52; series 4, image 33). Adrenal glands: Unremarkable. No nodules. Kidneys: Unremarkable. No masses, stones, or hydronephrosis. Vasculature: No abdominal aortic aneurysm. Superior mesenteric vein and portal vein patent. Mild narrowing of the distal splenic vein although the splenic vein is still patent. GI tract: The stomach is unremarkable. No dilated loops of large or small intestine. Status post ventral mesh in the epigastric region. Pelvis: Intrauterine device present. Bones: Status post L4 through S1 posterior fusion. IMPRESSION: Peripancreatic edema and fat stranding consistent with acute interstitial pancreatitis. Cystic lesion at the superior margin of the pancreatic head measuring 2.8 centimeters consistent with a pancreatic cyst or chronic pseudocyst. ECG Data Attestation: I personally reviewed and interpreted this ECG as follows: Discharge Plan Discharge Clinical Impression: Pancreatitis Patient Disposition: Admitted As Observation Condition: Stable
[2024-12-12 09:59] LABS: C Reactive Protein* < 0.5 mg/dL (0.5-1.0)
[2024-12-12 10:06] LABS: Lipase* 2682 U/L (23-300); NT Pro B Type NatriureticPept* 82 pg/mL
[2024-12-12 10:10] LABS: Troponin I* < 0.01 ng/mL (0.01-0.04)
[2024-12-12] MEDS: 0.9 % SODIUM CHLORIDE 1000 ml 1,000 ML IV ×3 (10:25→12:35)
[2024-12-12] MEDS: HYDROmorphone 0.5 mg/0.5 ml inj IVP ×5 (10:28→23:09)
[2024-12-12] MEDS: SUCRALFATE 1 GM TABLET PO (10:37)
--- OUTSIDE RECORDS SUMMARY | 2024-12-12 11:18 | XMS_ITS | Clinical Summary ---
Author Organization [facility] Address [address] [place] [id number] Care Team Providers Care Steam Shovel Runner Name Role Phone Pcp, No Primary Care [...] on file Legal Sex Female 5:25 AM [employer] Gender Identity Not on file Sexual Orientation [...] 177.8 cm (5' 10) 10/22/2013 1:46 PM [employer] Body Mass Index 32.18 10/22/2013 1:46 PM [employer] Plan of Treatment Health Maintenance Due Date [...] this topic Medical Devices Implanted Type Area Foreign Language Stenographer Device Identifier Shelf Expiration Date Model / Serial / Lot Kit Infuse - [id number] Implanted:Qty: 1 on 12/15/2011 at [facility] Bilateral: Lumbar Vertebrae [employer]ANE[employer] 07/17/2014 [id number] / / [id number] Capstone 8x22 - S- Implanted:Qty: 1 on 12/15/2011 at [facility] Bilateral: Lumbar Vertebrae [employer]ANE[employer] 06/02/2018 [id number]# / - / [id number] Capstone 12x22 - [id number] Implanted:Qty: 1 on 12/15/2011 at [facility] Bilateral: Lumbar Vertebrae [employer]ANEK 07/23/2018 [id number] / / [id number] Screw Sextant 6.5x35 - [id number] Implanted:Qty: 2 on 12/15/2011 at [facility] Bilateral: Lumbar Vertebrae [employer]ANE[employer] [id number]# / / - Description:load # [id number] Screw Sextant 6.5x40mm - [id number] Implanted:Qty: 2 on 12/15/2011 at [facility] Bilateral: Lumbar Vertebrae [employer] [id number]# / / - Description:load [id number] Set Screw Sextant - [id number] Implanted:Qty: 4 on 12/15/2011 at [facility] [employer] [id number]# / / - Description:load [id number] Jayro Sextant 65mm Ti - [id number] Implanted:Qty: 2 on 12/15/2011 at [facility] Bilateral: Lumbar Vertebrae [employer]ANEK [id number]# / / - Description:load [id number] Procedures Procedure Name Priority Date/Time Associated Diagnosis Comments CORPORATE TREASURER THIN PREP PAP SCREEN IMAGED Routine 10/22/2013 2:24 PM [employer] Screening for cervical cancer from Last 3 Months or Most Recently Relevant to Health Maintenance Results * CORPORATE TREASURER THIN PREP PAP SCREEN IMAGED (10/22/2013 2:24 PM [employer]) CYTOLOGY CYTOPATHOLOGY REPORT [facility] Status: Final Status [id number] CLINICAL INFORMATION Last Date of LMP :10/09/13 Last Pap Date :04/23/2009 Last Pap Result :NIL ABN [place]/Bx Past 5 YRS :None Hormone Usage :None Menstrual Status :Regular Periods [place]/Bx done today :No Additional Information :None given HPV Request :HPV if ASCUS SPECIMEN SOURCE :Cervical/vaginal ThinPrep Vial, screening SPECIMEN ADEQUACY :Satisfactory for evaluation Endocervical component present. INTERPRETATION/RES ULT Negative for intraepithelial lesion or malignancy (NIL) Cytology 1st Screener :caitlyn Signed by :acitlyn This specimen was screened by the FDA [...] malignant lesions. COLLECTED:10/22/13 ACCESSIONED: 10/23/13 SIGNED: 10/29/13 [facility] [place] CODE NIL [facility] Tissue specimen (specimen) (Cervical/Vagina l) 10/22/2013 2:24 PM [employer] 10/22/2013 2:23 PM [employer] us Faiht Rivers MD PATHOLOGY/CYTOLOGY Final Resul t [facility] INTERNAL ZIP [id number] [address] from Last 3 Months or Most Recently Relevant to Health Maintenance Insurance [employer] Advance Directives * Full Code (Latest Code Status on File) Date Activated Date Inactivated Comments 12/15/2011 4:06 PM 12/19/2011 3:22 PM * Full Code Date Activated Date Inactivated Comments 12/15/2011 3:54 AM 12/15/2011 4:06 PM Care Teams Steam Shovel Runner Relationship Specialty Start Date End Date Pcp, No . PCP - General 01/08/17
--- OUTSIDE RECORDS SUMMARY | 2024-12-12 11:19 | XMS_ITS | Continuity of Care Document ---
Author Organization [facility] mary anne Address [address] [place] [address] [place] [address] Phone Care Team Providers Care Wastewater Analyst Lab Analyst Name Role Phone Will MD RAZA, Lenard [...] VISIT, EST OFFICE/OUTPATIENT VISIT, EST OFFICE/OUTPATIENT VISIT, [facility] Advance Directives Directive Yes / No Effective Date File Name No Information Encounters Encounter Description Practice Location Reason(s) For Visit Diagnoses Date Provider Providers Copied on Encounter [facility], [address] [facility] [place], [id number], [place] tel:[phone] [facility] [place] No Information 2 Will Lenard. [address] [place] [address] [place], [id number], [place]. tel:[phone] OFFICE/OUTPAT IENT VISIT, EST [facility], [address] [place] [address] [place], [id number], [place] tel:[phone] [facility] [place] low back pain (chief complaint) Lumbago 2 Will Lenard. [address] [facility] [place], [id number], [place]. tel:[phone] Referring Provider: Lenard Rodríguez, [address] [place] [address] [place], [address] . tel:[phone] [facility], [address] [place] [address] [place], [id number], [place] tel:[phone] [place] [address] Pain Clinic [place] No Information 2 No Information Referring Provider: Lenard Rodríguez, [address] [place] [address] [place], [address] . tel:[phone] [facility], [address] [place] [address] [place], [id number], [place] tel:[phone] [facility] [place] back pain (chief complaint) No Information No Information Referring Provider: Lenard Rodríguez, [address] [place] [address] [place], [address] . tel:[phone] OFFICE/OUTPAT IENT VISIT, EST [facility], [address] [place] [address] [place], [id number], [place] tel:[phone] [facility] [place] low back pain (chief complaint) Lumbago 2 Jaylene Marshall. [facility] [place], [id number], [place]. tel:[phone] Referring Provider: Lenard Rodríguez, [address] [place] [address] [place], [address] . tel:[phone] [facility], [address] [place] [address], [id number], [place] tel:[phone] [facility] [place] back pain (chief complaint) No Information 2 No Information Referring Provider: Lenard Rodríguez, [address] [place], [place] [address], [address] . tel:[phone] [facility], [address] [place] [address], [id number], [place] tel:[phone] [facility] [place] Major depressive affective disorder, single episode, in partial or unspecified remissionOther , pain disorder related to psychological factors 2 Anamaria Dominguez. [address] [place] [address], [id number], [place]. tel:[phone] Referring Provider: Lenard Rodríguez, [address] [place], [place] [address], [address] . tel:[phone] OFFICE/OUTPAT IENT VISIT, EST [facility], [address] [place] [address], [id number], [place] tel:[phone] [facility] [place] low back pain (chief complaint) Lumbago 2 Will Lenard. [address] [place] [address], [id number], [place]. tel:[phone] Referring Provider: Lenard Rodríguez, [address] [place], [place] [address], [address] . tel:[phone] [facility], [address] [place] [address], [id number], [place] tel:[phone] [facility] [place] back pain (chief complaint) No Information 2 No Information Referring Provider: Lenard Rodríguez, [address] [place], [place] [address], [address] . tel:[phone] [facility], [address] [place] [address], [id number], [place] tel:[phone] [facility] [place] Major depressive affective disorder, single episode, in partial or unspecified remissionOther , pain disorder related to psychological factors 2 Anamaria Dominguez. [address] [place] [address], [id number], [place]. tel:[phone] Referring Provider: Lenard Rodríguez, [address] [place] [address] [place], [address] . tel:[phone] OFFICE/OUTPAT IENT VISIT, [facility], [address] [place] [address], [id number], [place] tel:[phone] [facility] [place] low back pain (chief complaint) Lumbago 2 Will Lenard. [address] [place] [address], [id number], [place]. tel:[phone] Referring Provider: Lenard Rodríguez, [address] [place], [place] [address], [address] . tel:[phone] OFFICE/OUTPAT IENT VISIT, [facility], [address] [place] [address], [id number], [place] tel:[phone] [facility] [place] low back pain (chief complaint) Lumbago 2 Will Lenard. [address] [place] [address], [id number], [place]. tel:[phone] Referring Provider: Lenard Rodríguez, [address] [place], [place] [address], [address] . tel:[phone] OFFICE/OUTPAT IENT VISIT, [facility], [address] [place] [address], [id number], [place] tel:[phone] [facility] [place] low back pain (chief complaint) Lumbago 2 Will Lenard. [address] [place] [address], [id number], [place]. tel:[phone] Referring Provider: Lenard Rodríguez, [address] [place], [place] [address], [address] . tel:[phone] Family History Family Member Type Diagnosis Age At Onset Mother Problem (finding) back pain after trauma Sister Problem (finding) back pain after trauma Payers Payer name Insurance type Covered republican ID Chalino hawkins(danielle) [employer] [id number] Social History Type Description Quantity Date Captured [...]
--- OUTSIDE RECORDS SUMMARY | 2024-12-12 11:19 | XMS_ITS | Clinical Summary ---
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 Gender Identity Not on file Sexual Orientation [...] BLOOD ORDERABLES Final Res ult RH LABORATORY [facility] [address] [facility] (1st floor, no room number) [place] [address] * PAP Smear - HIM Patient Reported [...] AM CDT) HIV 1&2 Antibody Negative [facility] 07/13/2009 11:4 3 AM CDT 07/13/2009 11:48 AM CDT us Payam Cardenas MD LABORATORY Final Result [address] [address] from Last 3 Months or Most Recently Relevant to Health Maintenance Insurance [facility] Advance Directives For more information, please contact: [phone] * Full Code (Latest Code Status on File) Date Activated Date Inactivated Comments 04/27/2024 11:22 PM 05/02/2024 8:01 PM All basic a nd advanced life-sustaining interventions are performed as appropriate Question Answer Comments Code status determined by: Discussion with patie nt/ legal decision maker * Full Code Date Activated Date Inactivated Comments 07/14/2016 6:32 AM 07/17/2016 6:56 PM Care Teams Warehouse Specialist Relationship Specialty Start Date End Date No Ref-Primary, Physician PCP - General 05/01/24
--- OUTSIDE RECORDS SUMMARY | 2024-12-12 11:19 | XMS_ITS | Continuity of Care Document ---
Author Organization [facility] Address [address] [facility] [address] [place] [address] Phone Care Team Providers Care Lime Kiln Operator Name Role Phone Unavailable Unavailable Unavailable Medications Medication Instructions Dosage Effective Dates (start - stop) Status Comments tramadol 50 mg tablet takes as needed. - Active oxycodone 5 mg tablet takes as needed. - Active gabapentin 800 mg Tab take 1 Tablet by Oral route 3 times every day 1 Tablet - Active acetaminophen 500 mg Cap take 4 Capsule (2000MG) by ORAL route every day as needed 2000 MG - Active sertraline 100 mg Tab take 1 Tablet (100MG) by ORAL route every day 100 MG - Active oxycodone 5 mg tablet take 1 tablet by oral route every 8 hours as needed - No Longer Active Procedures Procedure Date Offic/outpt E&m Estab Mod-la 2 14 Offic/outpt E&m Estab Lowmod 3 Offic/outpt E&m Estab Mod-la 2 13 Offic/outpt E&m Estab Mod-la 2 13 Offic/outpt E&m Estab Lowmod 3 Offic/outpt E&m Estab Low-mod 3 Offic/outpt E&m Estab Lowmod 3 Inject [...] Encounter Offic/outpt E&m Estab Mod-hi 2 [facility], [address] [facility] [address], [place], [place], [id number], tel:[phone] [facility] No Information 4 No Information Referring Provider: Faith Rivers MD P, [address] [place], [address]. tel:[phone] Offic/outpt E&m Estab Low-mod [facility], [address] [facility] [address], [place], [place], [id number], tel:[phone] [facility] No Information 3 No Information Referring Provider: Faith Rivers MD P, [address] [place], [address]. tel:[phone] Offic/outpt E&m Estab Mod-hi 2 [facility], [address], [place], [place], [id number], [place] tel:[phone] [facility] No Information 3 No Information Referring Provider: Faith Rivers MD P, [address] [place], [address]. tel:[phone] Offic/outpt E&m Estab Mod-hi 2 [facility], [facility], [address] [facility] [address], [place], [place], [id number], [place] tel:[phone] [facility] No Information 3 No Information Referring Provider: Faith Rivers MD P, [address] [place], [address]. tel:[phone] Offic/outpt E&m Estab Low-mod [facility], [facility], [address] [facility] [address], [place], [place], [id number], [place] tel:[phone] [facility] No Information 3 No Information Referring Provider: Faith Rivers MD P, [address] [place], [address]. tel:[phone] Offic/outpt E&m Estab Low-mod [facility], [facility], [address], [place], [place], [id number], [place] tel:[phone] [facility] No Information 3 Mindi Burden. [address] [place] [address], [address]. tel:[phone] Referring Provider: Faith Rivers MD P, [address] [place], [address]. tel:[phone] Offic/outpt E&m Estab Low-mod [facility], [facility], [address] [facility] [address], [place], [place], [id number], [place] tel:[phone] [facility] No Information 3 Mindi TITLE I COORDINATOR Jenise. [address] [place], [address]. tel:[phone] Referring Provider: Faith Rivers MD P, [address] [facility] [place], [address]. tel:[phone] [facility], [facility], [address] [facility] [address], [place], [place], [id number], [place] tel:[phone] [facility] No Information 3 Jey Kevin. [address], [place], [id number], [place]. tel:[phone] Referring Provider: Faith Rivers MD P, [address] [facility] [place], [address]. tel:[phone] Offic/outpt E&m Estab Mod-hi 2 [facility], [facility], [address] [facility] [address], [place], [place], [id number], [place] tel:[phone] [facility] No Information 3 Michael Herring. [address] [place], [address], [place]. Referring Provider: Faith Rivers MD P, [address] [facility] [place], [address]. tel:[phone] Offic/outpt E&m Estab Mod-hi 2 [facility], [facility], [address] [facility] [address], [place], [place], [id number], [place] tel:[phone] [facility] No Information 3 Mindi Burden. [address] [place], [address]. tel:[phone] Referring Provider: Faith Rivers MD P, [address] [place], [address]. tel:[phone] [facility], [address], [place], [place], [id number], [place] tel:[phone] [facility] No Information 3 Jey Kevin. [address], [place], [place], [id number], [place]. tel:[phone] Referring Provider: Faith Caballero, [address] [place], [address]. tel:[phone] Offic/outpt E&m Estab Low-mod [facility], [address] [facility] [address], [place], [place], [id number], [place] tel:[phone] [facility] No Information 3 Obregon TITLE I COORDINATOR Jenise. [address] [place], [address]. tel:[phone] Referring Provider: Faith Caballero, [address] [place], [address]. tel:[phone] Offic/outpt E&m Estab Mod-hi 2 [facility], [address] [facility] [address], [place], [place], [id number], [place] tel:[phone] [facility] No Information 3 Mindi TITLE I COORDINATOR Jenise. [address] [place], [address]. tel:[phone] Referring Provider: Faith Rivers MD P, [address] [place], [address]. tel:[phone] Offic/outpt E&m Estab Mod-hi 2 [facility], [address] [facility] [address], [place], [place], [id number], [place] tel:[phone] [facility] No Information 3 Mindi Burden. [address] [place] [address], [address]. tel:[phone] Referring Provider: Faith Caballero, [address] [place], [address]. tel:[phone] [facility], [address] [facility] [address], [place], [place], [id number], [place] tel:[phone] [facility] No Information 3 Jey Kevin. [address], [place], [place], [id number], [place]. tel:[phone] Referring Provider: Faith Caballero, [address] [place], [address]. tel:[phone] Offic/outpt E&m Estab Mod-hi 2 [facility], [facility], [address] [facility] [address], [place], [place], [id number], [place] tel:[phone] [facility] No Information 2 Mindi Burden. [address] [place] [address], [address]. tel:[phone] Referring Provider: Faith Caballero, [address] [place], [address]. tel:[phone] [facility], [address] [facility], [place], [place], [id number], [place] tel:[phone] [facility] No Information 2 Uriel Church. [address] [facility], [place], [place], [id number]. tel:[phone] Referring Provider: Faith Caballero, [address] [place], [place], [address]. tel:[phone] Offic/outpt E&m Estab Low-mod [facility], [facility], [address] [facility] [address], [place], [place], [id number], [place] tel:[phone] [facility] No Information 2 Mindi GOLDSMITH Jenise. [address] [place], [address]. tel:[phone] Referring Provider: Faith Rivers MD P, [address] [place], [address]. tel:[phone] Offic Cons New/estab Mod-hi 60 [facility], [facility], [address] [facility] [address], [place], [place], [id number], tel:[phone] [facility] No Information 2 Michael Herring. [address] [place], [address], [place]. Referring Provider: Faith Rivers MD P, [address] [place], [address]. tel:[phone] Family History Family Member Type Diagnosis Age At Onset No Information Payers Payer name Insurance type Covered constitution party ID Chalino hawkins(s) [facility] [id number] Social History Type Description Quantity Date Captured [...]
[2024-12-12] MEDS: HYDROmorphone 0.5 mg/0.5 ml inj 1 MG IVP ×2 (13:57→16:14)
[2024-12-12 14:19] LABS: Appearance Urine Clear (Clear); Bilirubin Urine 1+ (Negative); Blood Urine Negative (Negative); Color Urine Orange (Yellow); Glucose Urine Negative (Negative); Ketones Urine 1+ (Negative); Leukocyte Esterase Urine Negative (Negative); Nitrite Urine Negative (Negative); Protein Urine 1+ (Negative); Urobilinogen Urine 0.2 (0.2-1.0); pH Urine 5.5 (5.0-8.5)
[2024-12-12 14:26] LABS: Mucus Urine Few; RBC Urine 0-2 (0-2); Squamous Epithelial Cell Urine Many (None-Few); WBC Urine 0-2 (0-5)
--- NOTE | 2024-12-12 15:56 | PC.NURSE ---
Nursing Care Hours: 0300-9962 Pt this shift arrived from ED on stretcher, moaning loudly in pain. Able to walk with Ax1 into room. VSS. IV infusing fluids. IV pain meds given x2 with minimal relief per pt but card writer hand observed pt starting to dose off while quietly moaning. Pt asked if this pain could be part of alcohol withdrawal. Senior Interactive Developer educated pt on withdrawal vs pancreatitis. Wrier confirmed with pt that pt had withdrawl episode April of 2024 and last drink was vodka 12/11/24 at 2100. Pt reports feeling shaky right now but cant tell if it is withdrawal or pain. CIWA score 7.
--- NOTE | 2024-12-12 15:58 | P.IMHP_ITS ---
Assessment and Plan Assessment and plan (1) Pancreatitis: Problem comment: 07/14/2016 - following episode of binge drinking ([facility] records) 04/27/2024 - alcohol induced ([facility] records) 12/12/2024 - suspect alcohol induced: She has had 2 previous episodes both alcohol related. She continues to drink heavily and alcohol is the most likely cause. She is not painful in the right upper quadrant and right upper quadrant ultrasound shows an unremarkable gallbladder. While AST is mildly elevated I think this is likely related to alcohol use. There is no evidence of cholelithiasis as a cause of pancreatitis. Triglycerides are unremarkable. Status: Acute (2) Pancreatic cyst: Problem comment: While her white count is mildly elevated, she has not had any fever and CRP and procalcitonin are unremarkable. I do not think this fluid collection it in the pancreas is infected. I will hold off on treating with antibiotics at this time and treat for acute pancreatitis while monitoring. Have spoken with the patient and her about the need for follow-up as an outpatient and have recommended that she go to [facility] as an outpatient for further imaging and consultation. Status: Acute (3) Alcohol abuse: Problem comment: - ongoing heavy alcohol use despite 2 previous alcohol related pancreatitis episodes - start CIWA protocol as anticipate she will likely go through alcohol withdrawal - obtain urine tox screen - start oral thiamin, continue oral folic acid and multivitamin - social work consult Status: Acute (4) Dehydration: Problem comment: - likely due to pancreatitis and 3rd spacing - start maintenance IV fluids at 125 mL/hour, since gallbladder ultrasound is unremarkable for cholelithiasis or cholecystitis and she will therefore not need surgery, start clear liquid diet Status: Acute (5) Hypomagnesemia: Problem comment: - replace IV and recheck in the morning Status: Acute (6) Elevated LFTs: Problem comment: - mildly elevated AST, suspect from alcohol use, recheck in the morning Status: Acute (7) Elevated MCV: Problem comment: - suspect due to alcohol use, monitor Status: Acute Total Time Spent Total Time Spent: Time spent: Today I spent 75 minutes seeing the patient, discussing the patient with ER staff, reviewing Expanse and EPIC notes/diagnostics, discussing the care plan with our care team that includes social work, PT/OT, pharmacy, RT, penitentiary and documenting my impressions and plan in the medical record. MEDICAL NECESSITY FOR HOSPITALIZATION Anticipated midnights in the hospital: 2-3 Admitting diagnosis: Alcohol related acute pancreatitis with pancreatic fluid collection Risk of morbidity and mortality: high Acuity is characterized as high and reflected in: This patient has had recurrent alcohol related pancreatitis and has a fluid collection of unclear chronicity. She has an elevated MCV and hypo magnesemia likely associated with chronic alcohol use it is starting to go through alcohol withdrawal. She also has multiple mental health diagnoses. These comorbidities specifically would increase risk during treatment and potentially prolonged treatment length. This patient will require hospital services as outlined in the assessment and plan in order to stabilize and be safely discharged to a lower level of care. Because of the risk and acuity as described above, this patient cannot be managed at a lower level of care. LENGTH OF STAY: 2 IP ? Anticipated LOS>2 midnights due to acuity of clinical presentation requiring inpatient level of care Hospitalist- H&P: HPI History of Present Illness Time Seen by Provider: 14:30 Date Seen: 12/12/24 Chief complaint: Chest pain Narrative: Doris Kidd is a 44 year old female with a h/o recurrent alcohol-related pancreatitis who presented through the ER for a few hours of epigastric pain that started suddenly this morning. Doris tells me this pain is much worse than any pancreatitis episode she's had before. She denies fever, but did start sweating today. She notes that she may be going through alcohol withdrawal since her last drink was last night and she's a daily drinker. She denies nausea or vomiting. Pain is in the epigastrium and radiates in a butterfly pattern around to her back. The pain comes in waves, ?like having contractions.? Both previous episodes of pancreatitis were associated with alcohol. She told me that the doctor, who cared for her at [facility], told her she had something wrong with her gallbladder and she needed more imaging, but she didn't like that doctor, so she didn't go back. Doris tells me that she drinks 1L of vodka per day, but lately has been dr inking more than that. Later in our conversation, she said that since she is off work for a hurt ankle, she and her decided to travel and cut down on alcohol use, so she is now only drinking 1/2 L of vodka a day, but has increased her THC gummy use to daily. She also told me that the ankle injury happened in [place] after she got off the plane there. She said she hadn't eaten all day or slept well the night before and felt faint so she sat down on her luggage. When her turned away, she fainted to the ground, hurting her ankle. She said she had Xrays in the ER in [place]. There was no fracture and she was given a boot, which she is not wearing because she doesn't like it. She had pictures of her discharge instructions on her phone. These state that the findings on the Xrays are Left lateral soft tissue swelling without fracture. Review of Systems Status of ROS: Reports: 10 or more systems reviewed and unremarkable except as noted in History and below [facility] Medical History (Updated 12/13/24 @ 00:06 by Liza Jones MD) Pancreatitis ?K85.90 - Acute pancreatitis without necrosis or infection, unspecified (ICD- 10) History of narcotic addiction (~09/15/16) ?F11.21 - Opioid dependence, in remission (ICD-10) Moderate episode of recurrent major depressive disorder (10/10/16) ?F33.1 - Major depressive disorder, recurrent, moderate (ICD-10) Alcohol induced acute pancreatitis (04/27/24) ?K85.20 - Alcohol induced acute pancreatitis without necrosis or infection (ICD-10) Left arm numbness (~2014) ?R20.0 - Anesthesia of skin (ICD-10) Alcohol abuse ?F10.10 - Alcohol abuse, uncomplicated (ICD-10) Bipolar disorder, unspecified ?F31.9 - Bipolar disorder, unspecified (ICD-10) Anxiety state, unspecified ?F41.1 - Generalized anxiety disorder (ICD-10) Degenerative disk disease Placenta, retained (~2009) ?O73.0 - Retained placenta without hemorrhage (ICD-10) Abnormal head MRI (~2008) ?R93.0 - Abnormal findings on diagnostic imaging of skull and head, not elsewhere classified (ICD-10) Tobacco use disorder ?F17.200 - Nicotine dependence, unspecified, uncomplicated (ICD-10) Backache, unspecified ?M54.9 - Dorsalgia, unspecified (ICD-10) Scoliosis (and kyphoscoliosis), idiopathic ?M41.20 - Other idiopathic scoliosis, site unspecified (ICD-10) Surgical History History of removal of ovarian cyst ?Z98.890 - Other specified postprocedural states (ICD-10) ?Z87.42 - Personal history of other diseases of the female genital tract (ICD-10) H/O abdominal surgery (09/15/13) ?Z98.890 - Other specified postprocedural states (ICD-10) History of back surgery (12/15/11) ?Z98.890 - Other specified postprocedural states (ICD-10) Family History Brother Alcohol dependence High blood pressure Uncle Alcohol dependence Maternal Grandfather Coronary artery disease Maternal Grandmother Colon cancer Paternal Grandfather Type 2 diabetes mellitus Maternal Grandmother Coronary artery disease Depression Father Depression Aunt Depression Social History (Updated 12/12/24 @ 16:32 by Liza Jones MD) Narrative: , Juan is with her today. Smokes 1/2ppd. Has been drinking 1L vodka per day for the past 4 years. The details about alcohol use shift even as she is talking with me. She uses THC gummies occasionally, daily over the past week due to ankle pain. Denies other recreational drug use. What is your current living situation?: I presently have a place to live Problems where you live: unable to answer Problems where you live details: NA In the past 12 months, utilities in danger of being shut off: unable to answer In past 12 months, lack of transportation kept you from medical appts, meetings, work, or getting things needed for daily living: unable to answer In the past 12 mos, have been you worried that your food would run out before you had money to buy more?: unable to answer In the past 12 mos, the food you bought just didn't last and you didn't have money to buy more?: unable to answer Smoking Status: Never smoker Do you use any of these nicotine containing products: None How often do you have a drink containing alcohol: 2-4 times a month AUDIT-C Alcohol total score: 2 Non-prescribed substance use: marijuana (any form) How often does anyone, including family, friends and others, physically hurt you : unable to answer How often does anyone, including family, friends and others, insult or talk down to you: unable to answer How often does anyone, including family, friends and others, threaten you with harm: unable to answer How often does anyone, including family, friends and others, scream or curse at you: unable to answer Meds Home Medications and Allergies Home Medications ?Medication ?Instructions ?Recorded ?Confirmed ?Type famotidine 20 mg tablet (Pepcid) 20 mg PO DAILY 12/12/24 12/12/24 History Allergies Allergy/AdvReac Type Severity Reaction Status Date / Time No Known Drug Allergies Allergy Verified 12/12/24 09:33 Exam Narrative: Exam Narrative: General: No acute distress. Occasionally moans and writhes with pain. Awake alert oriented x3. HEENT: Normocephalic atraumatic, pupils equally round and reactive to light and accommodation. Oropharynx clear. Mucous membranes are moist. No cervical lymphadenopathy, thyromegaly or carotid bruits. No JVD. Cardiovascular: Regular rate and rhythm. No murmurs, gallops, or rubs. Chest: No increased work of breathing. Clear to auscultation bilaterally. No crackles or wheezes. Abdomen: Bowel sounds present. Soft, nondistended, tender in the epigastrium. No rebound tenderness or guarding. No tenderness in the right upper quadrant. No hepatosplenomegaly or masses. Extremities: No edema, no cyanosis or clubbing. Skin: No jaundice, no pallor, no rashes. Const: Vital Signs, click to edit/add: Vital Signs - 24 hr 12/12/24 09:28 12/12/24 09:29 12/12/24 10:23 Temperature 97.2 F L Pulse Rate [Pulse Oximeter] 80 63 Pulse Rate [Right Pulse Oximeter] Respiratory Rate 24 Blood Pressure Blood Pressure [Ri ght Arm] Blood Pressure [Ri ght Upper Arm] 107/63 107/63 124/59 L Pulse Oximetry 99 100 Oxygen Delivery Me thod Room Air 12/12/24 10:30 12/12/24 10:38 12/12/24 11:21 Temperature Pulse Rate [Pulse Oximeter] 56 L Pulse Rate [Right Pulse Oximeter] Respiratory Rate 20 Blood Pressure Blood Pressure [Ri ght Arm] Blood Pressure [Ri ght Upper Arm] 125/73 125/73 Pulse Oximetry 100 100 100 Oxygen Delivery Me thod Room Air 12/12/24 11:27 12/12/24 13:23 12/12/24 13:30 Temperature Pulse Rate [Pulse Oximeter] 68 66 Pulse Rate [Right Pulse Oximeter] Respiratory Rate 16 16 Blood Pressure 158/85 H Blood Pressure [Ri ght Arm] Blood Pressure [Ri ght Upper Arm] 124/59 L 125/73 Pulse Oximetry 98 97 Oxygen Delivery Me thod Room Air Room Air 12/12/24 14:02 12/12/24 15:05 Temperature Pulse Rate [Pulse Oximeter] Pulse Rate [Right Pulse Oximeter] 69 80 Respiratory Rate 18 16 Blood Pressure Blood Pressure [Ri ght Arm] 148/92 H 146/92 H Blood Pressure [Ri ght Upper Arm] Pulse Oximetry 98 96 Oxygen Delivery Me thod Room Air Room Air Hospitalist - H&P: Result Labs Labs: Short CBC 12/12/24 Range/Units 09:27 WBC 12.90 H (4.50-11.00) K/uL Hgb 13.1 (12.0-16.0) gm/dL Hct 40.1 (33.0-51.0) % Plt Count 295 (140-440) K/uL BMP 12/12/24 09:27 Sodium 136 Potassium 3.6 Chloride 99 Carbon Dioxide 26 BUN 8 Creatinine 0.5 Glucose 166 H Calcium 9.2 Cardiac Enzymes 12/12/24 Range/Units 09:27 Troponin I < 0.01 (0.01-0.04) ng/mL Liver Function 12/12/24 Range/Units 09:27 Total Bilirubin 0.9 (0.1-1.5) mg/dL Direct Bilirubin 0.2 (0.0-0.5) mg/dL AST 44 H (12-35) U/L ALT 35 (4-35) U/L Alkaline Phosphatase 60 (40-150) U/L Albumin 4.3 (3.3-5.0) g/dL Urine 12/12/24 Range/Units 13:50 Urine Color [place] A (Yellow) Urine Appearance Clear (Clear) Urine pH 5.5 (5.0-8.5) Ur Specific [place] 1.010 (1.000-1.030) Urine Protein 1+ A (Negative) Urine Glucose (UA) Negative (Negative) 12/12/2024 EKG: Sinus bradycardia, 50 beats per minute. Otherwise normal EKG. Imaging CT scan - abdomen: Attestation: I have reviewed the pertinent imaging results. Radiologist's impression: Ordering Physician: Yadira Price M.D. Date of Service: 12/12/24 Procedure(s): CT abdomen pelvis w con Accession Number(s): [id number] cc: Yadira Price M.D.~ For Patients: As a result of the Cures Act, medical imaging exams and procedure reports are released immediately into your electronic medical record. You may view this report before your referring provider. If you have questions, please contact your health care provider. INDICATION: Upper abdominal and back pain TECHNIQUE: Axial images were obtained from the diaphragm to the pubic symphysis. Reformats were obtained in the coronal and sagittal plane. IV Contrast: 89 cc Isovue 370 Oral Contrast: None COMPARISON: None. FINDINGS: Lower chest: Calcified granuloma right middle lobe. Liver: Normal in contour with focal fat adjacent to the falciform ligament and gallbladder fossa. Gallbladder and bile ducts: Unremarkable. No stones or inflammation. No biliary dilatation. Spleen: Calcifications in the spleen consistent with old granulomatous disease. Pancreas: Fat stranding surrounding the pancreas with free fluid in the pancreatic bed extending into the left pericolic gutter. Exophytic cyst at the superior margin of the pancreatic head measuring 2.8 centimeters (series 2, image 52; series 4, image 33). Adrenal glands: Unremarkable. No nodules. Kidneys: Unremarkable. No masses, stones, or hydronephrosis. Vasculature: No abdominal aortic aneurysm. Superior mesenteric vein and portal vein patent. Mild narrowing of the distal splenic vein although the splenic vein is still patent. GI tract: The stomach is unremarkable. No dilated loops of large or small intestine. Status post ventral mesh in the epigastric region. Pelvis: Intrauterine device present. Bones: Status post L4 through S1 posterior fusion. IMPRESSION: Peripancreatic edema and fat stranding consistent with acute interstitial pancreatitis. Cystic lesion at the superior margin of the pancreatic head measuring 2.8 centimeters consistent with a pancreatic cyst or chronic pseudocyst. Please note that all CT scans at this facility use dose modulation, iterative reconstruction, and/or weight-based dosing when appropriate to reduce radiation dose to as low as reasonably achievable. Dictated by Efrem Junior MD @ 12/12/2024 10:56:20 AM (Electronically Signed) US - abdomen: Attestation: I have reviewed the pertinent imaging results. Radiologist's impression: Ordering Physician: Liza Jones M.D. Date of Service: 12/12/24 Procedure(s): US abdomen limited Accession Number(s): [id number] cc: Liza Jones M.D.; Provider,Not a Local~ For Patients: As a result of the Cures Act, medical imaging exams and procedure reports are released immediately into your electronic medical record. You may view this report before your referring provider. If you have questions, please contact your health care provider. INDICATION: Pancreatitis. TECHNIQUE: Ultrasound abdomen limited. Sonographic images of the right upper quadrant were obtained using uriarte-scale and color Doppler images. COMPARISON: CT same day. FINDINGS: Liver: Diffuse hepatic steatosis. No intrahepatic biliary dilatation. Gallbladder: No stones or sludge. Normal wall thickness. No pericholecystic fluid. Common bile duct: 6 mm. Pancreas: Heterogeneous appearance of pancreas. Simple anechoic cystic focus superior to and abutting the pancreatic head neck junction. Incompletely characterized on this exam, however in the setting acute pancreatitis could potentially reflect acute pancreatic collection. Right kidney: Normal in size. Normal echotexture. No shadowing stones, or hydronephrosis. Vasculature: Proximal abdominal aorta and IVC are unremarkable. IMPRESSION: Heterogeneous appearance of pancreas. Simple anechoic cystic focus superior to and abutting the pancreatic head neck junction. Incompletely characterized on this exam, however in the setting acute pancreatitis could potentially reflect acute pancreatic collection. Recommend follow-up triple phase CT versus pancreatic protocol MRI when patient`s conditions have improved. Dictated by Herberth Sehikh MD @ 12/12/2024 5:36:23 PM (Electronically Signed)
[2024-12-12] MEDS: LACTATED RINGERS 1000 ML 1,000 ML 125 ML IV (16:33)
[2024-12-12] MEDS: MAGNESIUM IV 2 GM/50 ML PIGGYBACK IVPB (16:36)
[2024-12-12 16:57] LABS: INR 0.93 (0.91-1.10); Prothrombin Time 13.3 Seconds; Triglycerides* 97 mg/dL (40-149)
[2024-12-12] MEDS: FOLIC ACID 1 MG TABLET PO (16:57)
[2024-12-12] MEDS: THIAMINE 100 MG TABLET PO (16:57)
[2024-12-12 17:00] LABS: HCG Qualitative Serum* Negative (Negative)
[2024-12-12 17:03] LABS: Amphetamine Screen Urine POSITIVE (Negative); Barbiturate Screen Urine Negative (Negative); Benzodiazepines Screen Urine Negative (Negative); Cannabinoid Screen Urine POSITIVE (Negative); Cocaine Screen Urine Negative (Negative); Methadone Screen Urine Negative (Negative); Methamphetamines Screen Urine Negative (Negative); Opiate Screen Urine POSITIVE (Negative); Oxycodone Screen Urine Negative (Negative); Phencyclidine Screen Urine Negative (Negative); Tricyclic Antidepressant Urine Negative (Negative)
[2024-12-12] MEDS: ACETAMINOPHEN 325 MG TABLET 975 MG PO (17:03)
[2024-12-12 17:15] LABS: Procalcitonin* 0.18 ng/mL (<0.50)
[2024-12-12 17:27] LABS: Lactate* 1.2 mmol/L (0.5-1.9)
--- NOTE | 2024-12-12 18:29 | PC.NURSE ---
End of Shift: Patient pleasant and cooperative. Patient hypertensive, but stable, lungs clear, BS WNL, IV running LR at 125. Patient rates abdominal pain 7/10, 1mg of Dilaudid given once, patient moans with pain. Patient did have a nap. Patient has brace on left ankle from injury in [place]. CIWA 0,2,1. Patient declined nicotine patch. Tele=NSR.
[2024-12-12] MEDS: ENOXAPARIN 40 MG/0.4 ML INJ SUBCUT (21:05)
[2024-12-12] MEDS: SODIUM CHLORIDE 0.9 % (FLUSH) 10 ML SYRINGE 5 ML IVF (21:05)
[2024-12-13] VITALS (12 sets, daily range): BP systolic 134–148; BP diastolic 68–95; PULSE 69–96; RESP 16; TEMP 36.6–36.9; O2SAT 86–98
[2024-12-13] MEDS: LACTATED RINGERS 1000 ML 1,000 ML 125 ML IV ×3 (02:32→17:01)
[2024-12-13] MEDS: SODIUM CHLORIDE 0.9 % (FLUSH) 10 ML SYRINGE 5 ML IVF ×3 (02:35→13:58)
[2024-12-13] MEDS: HYDROmorphone 0.5 mg/0.5 ml inj IVP ×8 (02:36→22:09)
--- NOTE | 2024-12-13 05:56 | PC.NURSE ---
Shift note: Patient continue to have epigastric pain and tenderness. Requested for pain medication almost every 2 hours. O2 has been falling within the 80s. 1L oxygen given which help to maintained the O2>90% for the rest of the shift. No withdrawal symptoms noted except mild tremors felt on touch. SBA to BR. Sleep has been interrupted by the pain. No nausea or vomiting recorded. Weight has gone up from yesterday by about 7kg.
[2024-12-13 06:23] LABS: Basophils Absolute Auto 0.01 K/uL (0.00-0.30); Basophils Percent Auto 0.1 % (0.0-3.0); Eosinophils Absolute Auto 0.11 K/uL (0.00-0.50); Eosinophils Percent Auto 1.2 % (0.0-7.0); Hematocrit 35.2 % (33.0-51.0); Hemoglobin* 11.5 gm/dL (12.0-16.0); Immature Granulocytes Abs Auto 0.02 K/uL (0.00-0.30); Immature Granulocytes Pct Auto 0.2 %; Lymphocytes Percent Auto 8.8 % (20-44); Mean Corpuscular HGB Conc 33 gm/dL (32-36); Mean Corpuscular Hemoglobin 34 pg (26-34); Mean Corpuscular Volume 103 fL (80-100); Monocytes Percent Auto 8.5 % (0.0-11.0); Neutrophils Percent Auto 81.2 % (42.0-72.0); Platelet Count* 197 K/uL (140-440); RDW Coefficient of Variation % 14.1 % (11.5-15.5); Red Blood Count 3.43 m/uL (4.00-5.20); White Blood Count* 9.31 K/uL (4.50-11.00)
[2024-12-13 06:26] LABS: Slide Review Reflex No
[2024-12-13 06:30] LABS: Albumin* 3.5 g/dL (3.3-5.0); Chloride* 102 mmol/L (96-114)
[2024-12-13 06:31] LABS: Potassium* 3.9 mmol/L (3.6-5.1); Sodium* 133 mmol/L (135-149)
[2024-12-13 06:33] LABS: Alanine Aminotransferase* 25 U/L (4-35); Alkaline Phosphatase* 55 U/L (40-150); Anion Gap 4 mEq/L (7-15); Aspartate Amino Transferase* 31 U/L (12-35); Bilirubin Total* 0.7 mg/dL (0.1-1.5); Blood Urea Nitrogen* 10 mg/dL (5-24); Carbon Dioxide* 27 mmol/L (20-32); Creatinine* 0.4 mg/dL (0.5-1.5); Est. Creatinine Clearance* 190.04; Estimated Glomerular Filt Rate 124 ml/min
[2024-12-13 06:34] LABS: Calcium* 8.4 mg/dL (8.4-10.6); Glucose* 107 mg/dL (60-115); Magnesium* 1.7 mg/dL (1.5-2.6); Total Protein* 6.1 g/dL (6.0-8.3)
[2024-12-13] MEDS: OMEPRAZOLE 20 MG CAPSULE DR 40 MG PO (06:42)
[2024-12-13] MEDS: MULTIVITAMIN/MINERALS 1 TABLET 1 TAB PO (09:48)
[2024-12-13] MEDS: FOLIC ACID 1 MG TABLET PO (09:48)
[2024-12-13] MEDS: FAMOTIDINE 20 MG TABLET PO (09:48)
[2024-12-13] MEDS: ACETAMINOPHEN 325 MG TABLET 975 MG PO ×2 (09:54→17:09)
--- NOTE | 2024-12-13 13:26 | PM.IMPN1 ---
Assessment and Plan Assessment and plan (1) Pancreatitis: Problem comment: 07/14/2016 - following episode of binge drinking ([place] records) 04/27/2024 - alcohol induced ([place] records) 12/12/2024 - suspect alcohol induced: She has had 2 previous episodes both alcohol related. She continues to drink heavily and alcohol is the most likely cause. She is not painful in the right upper quadrant and right upper quadrant ultrasound shows an unremarkable gallbladder. While AST is mildly elevated I think this is likely related to alcohol use. There is no evidence of cholelithiasis as a cause of pancreatitis. Triglycerides are unremarkable. 12/13/2024: Patient is tolerating clear liquid diet will advance it to full fluid diet today. Status: Acute (2) Pancreatic cyst: Problem comment: While her white count is mildly elevated, she has not had any fever and CRP and procalcitonin are unremarkable. I do not think this fluid collection it in the pancreas is infected. I will hold off on treating with antibiotics at this time and treat for acute pancreatitis while monitoring. Have spoken with the patient and her about the need for follow-up as an outpatient and have recommended that she go to [facility] as an outpatient for further imaging and consultation. Status: Acute (3) Alcohol abuse: Problem comment: - ongoing heavy alcohol use despite 2 previous alcohol related pancreatitis episodes - start CIWA protocol as anticipate she will likely go through alcohol withdrawal - obtain urine tox screen - start oral thiamin, continue oral folic acid and multivitamin - social work consult Status: Acute (4) Dehydration: Problem comment: - likely due to pancreatitis and 3rd spacing - start maintenance IV fluids at 125 mL/hour, since gallbladder ultrasound is unremarkable for cholelithiasis or cholecystitis and she will therefore not need surgery, start clear liquid diet Status: Acute (5) Hypomagnesemia: Problem comment: - replace IV and recheck in the morning Status: Acute (6) Elevated LFTs: Problem comment: - mildly elevated AST, suspect from alcohol use, recheck in the morning Status: Acute (7) Elevated MCV: Problem comment: - suspect due to alcohol use, monitor Status: Acute Total Time Spent Total Time Spent: Today I spent 50 minutes seeing the patient, reviewing Expanse and EPIC notes/diagnostics, discussing the care plan with our care time that includes social work, PT/OT, pharmacy, RT, fdc and documenting my impressions and plan in the medical record. Subjective Date Seen: 12/13/24 Interval history: Patient seen and examined at bedside today. She states that she feels much better pain has improved a lot. She was on 2 L oxygen and satting high 90s. Will stop oxygen and see how she is doing without. Patient is tolerating clear liquid diet will advance it to full fluid diet today. Exam Narrative: Exam Narrative: Physical exam GENERAL: Comfortable, no acute distress. HEAD AND NECK: Atraumatic, normocephalic CARDIOVASCULAR: RRR. Normal S1, S2. No murmurs. RESPIRATORY: Clear to auscultation B/L. Good air entry B/L. No wheezes or rhonchi. GASTROINTESTINAL: Not distended, mildly tender to palpation periumbilical. NEUROLOGY: Alert, awake, oriented X 3. Normal speech. PSYCH: Normal mood, normal affect. Const: Vital Signs, click to edit/add: Vital Signs - 24 hr 12/12/24 13:30 12/12/24 14:02 12/12/24 15:05 Temperature Pulse Rate Pulse Rate [Pulse Oximeter] 66 Pulse Rate [Right Pulse Oximeter] 69 80 Respiratory Rate 16 18 16 Blood Pressure [Ri ght Arm] 148/92 H 146/92 H Blood Pressure [Ri ght Upper Arm] 125/73 Pulse Oximetry 97 98 96 Oxygen Delivery Me thod Room Air Room Air Room Air Oxygen Flow Rate 12/12/24 16:20 12/12/24 16:20 12/12/24 16:51 Temperature 98.5 F 98.5 F Pulse Rate Pulse Rate [Pulse Oximeter] Pulse Rate [Right Pulse Oximeter] 76 76 Respiratory Rate 18 18 Blood Pressure [Ri ght Arm] 159/94 H 159/94 H Blood Pressure [Ri ght Upper Arm] Pulse Oximetry 96 96 93 Oxygen Delivery Me thod Room Air Room Air Oxygen Flow Rate 12/12/24 17:14 12/12/24 17:16 12/12/24 18:17 Temperature 98.6 F 98.4 F Pulse Rate 73 Pulse Rate [Pulse Oximeter] Pulse Rate [Right Pulse Oximeter] 83 75 Respiratory Rate 14 14 Blood Pressure [Ri ght Arm] 172/101 H 168/102 H Blood Pressure [Ri ght Upper Arm] Pulse Oximetry 96 96 Oxygen Delivery Me thod Room Air Room Air Oxygen Flow Rate 12/12/24 19:00 12/12/24 22:22 12/12/24 22:22 Temperature 98.2 F 98.3 F Pulse Rate Pulse Rate [Pulse Oximeter] Pulse Rate [Right Pulse Oximeter] 89 89 89 Respiratory Rate 16 16 16 Blood Pressure [Ri ght Arm] 163/93 H 143/89 H Blood Pressure [Ri ght Upper Arm] Pulse Oximetry 96 96 Oxygen Delivery Me thod Room Air Room Air Oxygen Flow Rate 12/12/24 22:22 12/12/24 23:00 12/12/24 23:59 Temperature Pulse Rate 87 Pulse Rate [Pulse Oximeter] Pulse Rate [Right Pulse Oximeter] Respiratory Rate 16 Blood Pressure [Ri ght Arm] Blood Pressure [Ri ght Upper Arm] Pulse Oximetry 96 86 L Oxygen Delivery Me thod Room Air Room Air Oxygen Flow Rate 12/13/24 00:28 12/13/24 02:39 12/13/24 03:28 Temperature 97.9 F Pulse Rate Pulse Rate [Pulse Oximeter] Pulse Rate [Right Pulse Oximeter] 90 Respiratory Rate 16 Blood Pressure [Ri ght Arm] 148/95 H Blood Pressure [Ri ght Upper Arm] Pulse Oximetry 94 95 89 Oxygen Delivery Me thod Nasal Cannula Nasal Cannula Nasal Cannula Oxygen Flow Rate 1 1 1 12/13/24 03:29 12/13/24 07:00 12/13/24 07:00 Temperature 98.4 F Pulse Rate 85 Pulse Rate [Pulse Oximeter] Pulse Rate [Right Pulse Oximeter] 96 Respiratory Rate 16 Blood Pressure [Ri ght Arm] 140/88 H Blood Pressure [Ri ght Upper Arm] Pulse Oximetry 94 93 Oxygen Delivery Me thod Nasal Cannula Room Air Oxygen Flow Rate 1.5 12/13/24 07:00 12/13/24 07:00 12/13/24 07:00 Temperature 98.4 F Pulse Rate Pulse Rate [Pulse Oximeter] Pulse Rate [Right Pulse Oximeter] 96 96 Respiratory Rate 16 16 16 Blood Pressure [Ri ght Arm] 140/88 H Blood Pressure [Ri ght Upper Arm] Pulse Oximetry 93 93 Oxygen Delivery Me thod Room Air Room Air Oxygen Flow Rate 12/13/24 11:00 Temperature 98.0 F Pulse Rate Pulse Rate [Pulse Oximeter] Pulse Rate [Right Pulse Oximeter] 92 Respiratory Rate 16 Blood Pressure [Ri ght Arm] 142/82 H Blood Pressure [Ri ght Upper Arm] Pulse Oximetry 92 Oxygen Delivery Me thod Room Air Oxygen Flow Rate 1 Labs Labs: Laboratory Results - last 24 hr 12/12/24 12/12/24 12/12/24 09:27 13:50 15:59 WBC RBC Hgb Hct MCV MCH MCHC RDW Coeff of [place] Plt Count Neut % (Auto) Lymph % (Auto) [place] % (Auto) Eos % (Auto) Baso % (Auto) Neut # (Auto) Lymph # (Auto) [place] # (Auto) Eos # (Auto) Baso # (Auto) Abs Immat Gran (auto) Imm/Tot Granulo (auto) INR 0.93 Sodium Potassium Chloride Carbon Dioxide Anion Gap BUN Creatinine Estimated Creat Clear Estimated GFR Glucose Lactate Calcium Magnesium Total Bilirubin AST ALT Alkaline Phosphatase Total Protein Albumin Triglycerides 97 Procalcitonin 0.18 HCG, Qual Negative Urine Color [place] A Urine Appearance Clear Urine pH 5.5 Ur Specific [place] 1.010 Urine Protein 1+ A Urine Glucose (UA) Negative Urine Ketones 1+ A Urine Blood Negative Urine Nitrite Negative Urine Bilirubin 1+ A Urine Urobilinogen 0.2 Ur Leukocyte Esterase Negative Urine RBC 0-2 Urine WBC 0-2 Ur Squamous Epith Cells Many A Urine Bacteria None Urine Mucus Few A Urine Opiates Screen POSITIVE A Ur Oxycodone Screen Negative Urine Methadone Screen Negative Ur Barbiturates Screen Negative U Tricyclic Antidepress Negative Ur Phencyclidine Scrn Negative Ur Amphetamines Screen POSITIVE A U Methamphetamines Scrn Negative U Benzodiazepines Scrn Negative Urine Cocaine Screen Negative U Marijuana (THC) Screen POSITIVE A Ur Drug Screen Comment See Note Lab Acknowledgement Test Added 12/12/24 12/13/24 17:18 05:40 WBC 9.31 RBC 3.43 L Hgb 11.5 L Hct 35.2 MCV 103 H MCH 34 MCHC 33 RDW Coeff of [place] 14.1 Plt Count 197 Neut % (Auto) 81.2 H Lymph % (Auto) 8.8 L [place] % (Auto) 8.5 Eos % (Auto) 1.2 Baso % (Auto) 0.1 Neut # (Auto) 7.60 H Lymph # (Auto) 0.80 L [place] # (Auto) 0.80 Eos # (Auto) 0.11 Baso # (Auto) 0.01 Abs Immat Gran (auto) 0.02 Imm/Tot Granulo (auto) 0.2 INR Sodium 133 L Potassium 3.9 Chloride 102 Carbon Dioxide 27 Anion Gap 4 L BUN 10 Creatinine 0.4 L Estimated Creat Clear 190.04 Estimated GFR 124 Glucose 107 Lactate 1.2 Calcium 8.4 Magnesium 1.7 Total Bilirubin 0.7 AST 31 ALT 25 Alkaline Phosphatase 55 Total Protein 6.1 Albumin 3.5 Triglycerides Procalcitonin HCG, Qual Urine Color Urine Appearance Urine pH Ur Specific [place] Urine Protein Urine Glucose (UA) Urine Ketones Urine Blood Urine Nitrite Urine Bilirubin Urine Urobilinogen Ur Leukocyte Esterase Urine RBC Urine WBC Ur Squamous Epith Cells Urine Bacteria Urine Mucus Urine Opiates Screen Ur Oxycodone Screen Urine Methadone Screen Ur Barbiturates Screen U Tricyclic Antidepress Ur Phencyclidine Scrn Ur Amphetamines Screen U Methamphetamines Scrn U Benzodiazepines Scrn Urine Cocaine Screen U Marijuana (THC) Screen Ur Drug Screen Comment Lab Acknowledgement
[2024-12-13] MEDS: THIAMINE 100 MG TABLET PO (17:00)
--- NOTE | 2024-12-13 18:50 | PC.NURSE ---
Patient rating her pain at a 7-9/10 in her epigastric area. Patient describes the pain as a sharp/full feeling. Dilaudid given PRN per the eMAR. Aqua k pad given to help with discomfort and patient says this seems to help. Patient trying full liquids this afternoon and it seems to have increased her pain somewhat. Tylenol given in addition for pain.
[2024-12-13] MEDS: ENOXAPARIN 40 MG/0.4 ML INJ SUBCUT (20:04)
[2024-12-14] VITALS (10 sets, daily range): BP systolic 125–137; BP diastolic 69–90; PULSE 67–107; RESP 16–18; TEMP 36.6–37.1; O2SAT 90–98
[2024-12-14] MEDS: HYDROmorphone 0.5 mg/0.5 ml inj IVP ×3 (01:43→07:32)
[2024-12-14] MEDS: LACTATED RINGERS 1000 ML 1,000 ML 125 ML IV ×2 (03:02→12:42)
--- NOTE | 2024-12-14 05:05 | PC.NURSE ---
Shift note: Patient is doing well with pain control. Only 2x pain medication requested tonight compared to last night. She confirmed reduction in pain intensity and frequency. No nausea or vomiting observed. Tolerated full liquid diet well. Vitally stable.
[2024-12-14] MEDS: OMEPRAZOLE 20 MG CAPSULE DR 40 MG PO (06:37)
[2024-12-14] MEDS: FAMOTIDINE 20 MG TABLET PO (07:38)
[2024-12-14] MEDS: ACETAMINOPHEN 325 MG TABLET 975 MG PO ×3 (07:38→20:50)
[2024-12-14 08:02] LABS: Hematocrit 32.2 % (33.0-51.0); Hemoglobin* 10.6 gm/dL (12.0-16.0); Mean Corpuscular HGB Conc 33 gm/dL (32-36); Mean Corpuscular Hemoglobin 34 pg (26-34); Mean Corpuscular Volume 102 fL (80-100); Platelet Count* 192 K/uL (140-440); Red Blood Count 3.15 m/uL (4.00-5.20); White Blood Count* 9.14 K/uL (4.50-11.00)
[2024-12-14 08:13] LABS: Slide Review Reflex No
[2024-12-14 08:18] LABS: Albumin* 3.4 g/dL (3.3-5.0); Chloride* 98 mmol/L (96-114); Potassium* 3.8 mmol/L (3.6-5.1); Sodium* 131 mmol/L (135-149)
[2024-12-14 08:21] LABS: Alanine Aminotransferase* 20 U/L (4-35); Alkaline Phosphatase* 60 U/L (40-150); Anion Gap 4 mEq/L (7-15); Aspartate Amino Transferase* 24 U/L (12-35); Bilirubin Total* 0.8 mg/dL (0.1-1.5); Blood Urea Nitrogen* 3 mg/dL (5-24); Carbon Dioxide* 29 mmol/L (20-32); Creatinine* 0.4 mg/dL (0.5-1.5); Est. Creatinine Clearance* 190.04; Estimated Glomerular Filt Rate 124 ml/min; Total Protein* 6.1 g/dL (6.0-8.3)
[2024-12-14 08:22] LABS: Calcium* 8.6 mg/dL (8.4-10.6); Glucose* 95 mg/dL (60-115)
[2024-12-14] MEDS: MORPHINE 2 MG/ML inj IVP ×3 (09:47→19:50)
[2024-12-14] MEDS: FOLIC ACID 1 MG TABLET PO (10:32)
[2024-12-14] MEDS: MULTIVITAMIN/MINERALS 1 TABLET 1 TAB PO (10:32)
[2024-12-14] MEDS: SODIUM CHLORIDE 0.9 % (FLUSH) 10 ML SYRINGE 5 ML IVF ×2 (10:33→19:51)
--- NOTE | 2024-12-14 14:24 | PM.IMPN1 ---
Assessment and Plan Assessment and plan (1) Pancreatitis: Problem comment: 07/14/2016 - following episode of binge drinking ([place] records) 04/27/2024 - alcohol induced ([place] records) 12/12/2024 - suspect alcohol induced: She has had 2 previous episodes both alcohol related. She continues to drink heavily and alcohol is the most likely cause. She is not painful in the right upper quadrant and right upper quadrant ultrasound shows an unremarkable gallbladder. While AST is mildly elevated I think this is likely related to alcohol use. There is no evidence of cholelithiasis as a cause of pancreatitis. Triglycerides are unremarkable. 12/13/2024: Patient is tolerating clear liquid diet will advance it to full fluid diet today. 12/14: Advanced to regular diet, will decrease the rate of IV fluids. Status: Acute (2) Pancreatic cyst: Problem comment: While her white count is mildly elevated, she has not had any fever and CRP and procalcitonin are unremarkable. I do not think this fluid collection it in the pancreas is infected. I will hold off on treating with antibiotics at this time and treat for acute pancreatitis while monitoring. Have spoken with the patient and her about the need for follow-up as an outpatient and have recommended that she go to [facility] as an outpatient for further imaging and consultation. Status: Acute (3) Alcohol abuse: Problem comment: - ongoing heavy alcohol use despite 2 previous alcohol related pancreatitis episodes - start CIWA protocol as anticipate she will likely go through alcohol withdrawal - obtain urine tox screen - start oral thiamin, continue oral folic acid and multivitamin - social work consult Status: Acute (4) Dehydration: Problem comment: - likely due to pancreatitis and 3rd spacing - start maintenance IV fluids at 125 mL/hour, since gallbladder ultrasound is unremarkable for cholelithiasis or cholecystitis and she will therefore not need surgery, start clear liquid diet Status: Acute (5) Hypomagnesemia: Problem comment: - replace IV and recheck in the morning Status: Acute (6) Elevated LFTs: Problem comment: - mildly elevated AST, suspect from alcohol use, recheck in the morning Status: Acute (7) Elevated MCV: Problem comment: - suspect due to alcohol use, monitor Status: Acute Total Time Spent Total Time Spent: Today I spent 50 minutes seeing the patient, reviewing Expanse and EPIC notes/diagnostics, discussing the care plan with our care time that includes social work, PT/OT, pharmacy, RT, nursing home and documenting my impressions and plan in the medical record. Subjective Date Seen: 12/14/24 Interval history: Patient seen and examined at bedside today. She states that she feels better, currently off oxygen. Patient is tolerating full liquid diet will advance to regular diet. Exam Narrative: Exam Narrative: Physical exam GENERAL: Comfortable, no acute distress. HEAD AND NECK: Atraumatic, normocephalic CARDIOVASCULAR: RRR. Normal S1, S2. No murmurs. RESPIRATORY: Clear to auscultation B/L. Good air entry B/L. No wheezes or rhonchi. GASTROINTESTINAL: Not distended, not tender to palpation. NEUROLOGY: Alert, awake, oriented X 3. Normal speech. PSYCH: Normal mood, normal affect. Const: Vital Signs, click to edit/add: Vital Signs - 24 hr 12/13/24 15:00 12/13/24 15:00 12/13/24 15:00 Temperature 98.0 F Pulse Rate Pulse Rate [Right Pulse Oximeter] 92 92 Respiratory Rate 16 16 16 Blood Pressure [Ri ght Arm] 144/68 H Pulse Oximetry 92 93 Oxygen Delivery Me thod Nasal Cannula Nasal Cannula Oxygen Flow Rate 1 1 12/13/24 15:00 12/13/24 15:00 12/13/24 16:00 Temperature 98.0 F Pulse Rate 69 Pulse Rate [Right Pulse Oximeter] 92 Respiratory Rate 16 Blood Pressure [Ri ght Arm] 144/68 H Pulse Oximetry 93 93 Oxygen Delivery Me thod Nasal Cannula Oxygen Flow Rate 1 12/13/24 19:00 12/13/24 22:05 12/13/24 22:05 Temperature 98.2 F 97.9 F Pulse Rate Pulse Rate [Right Pulse Oximeter] 83 89 89 Respiratory Rate 16 16 16 Blood Pressure [Ri ght Arm] 147/77 H 134/85 Pulse Oximetry 93 98 Oxygen Delivery Me thod Room Air Room Air Oxygen Flow Rate 12/13/24 22:05 12/13/24 22:33 12/13/24 22:33 Temperature Pulse Rate Pulse Rate [Right Pulse Oximeter] Respiratory Rate 16 Blood Pressure [Ri ght Arm] Pulse Oximetry 98 86 L 94 Oxygen Delivery Me thod Room Air Room Air Nasal Cannula Oxygen Flow Rate 1.5 12/13/24 23:00 12/14/24 01:41 12/14/24 07:00 Temperature 97.9 F 98.7 F Pulse Rate 78 Pulse Rate [Right Pulse Oximeter] 83 107 H Respiratory Rate 16 18 Blood Pressure [Ri ght Arm] 135/80 137/84 Pulse Oximetry 98 90 Oxygen Delivery Me thod Nasal Cannula Room Air Oxygen Flow Rate 1 12/14/24 07:00 12/14/24 07:00 12/14/24 07:00 Temperature Pulse Rate 85 Pulse Rate [Right Pulse Oximeter] 107 H Respiratory Rate 18 18 Blood Pressure [Ri t Arm] Pulse Oximetry 90 Oxygen Delivery Me thod Room Air Oxygen Flow Rate Labs Labs: Laboratory Results - last 24 hr 12/14/24 07:54 WBC 9.14 RBC 3.15 L Hgb 10.6 L Hct 32.2 L MCV 102 H MCH 34 MCHC 33 Plt Count 192 Sodium 131 L Potassium 3.8 Chloride 98 Carbon Dioxide 29 Anion Gap 4 L BUN 3 L Creatinine 0.4 L Estimated Creat Clear 190.04 Estimated GFR 124 Glucose 95 Calcium 8.6 Total Bilirubin 0.8 AST 24 ALT 20 Alkaline Phosphatase 60 Total Protein 6.1 Albumin 3.4
[2024-12-14] MEDS: OXYCODONE 5 MG TABLET PO ×2 (14:48→18:48)
--- NOTE | 2024-12-14 18:12 | PC.NURSE ---
Shift Note [id number]: Pt friendly and cooperative, appears tired. VS WNL, although occasionally tachycardic. Rates pain 6-8/10, pain medication changed from Dilaudid to Morphine as well as Oxycodone. Pt transitioned to PRN Oxy and Tylenol this afternoon and appears comfortable. She states she is passing flatus and ambulated the unit x2 today in the company of her and son. She denies any BM and requested PRN Miralax. She was able to advance to a regular diet. She is tolerating it fairly well, but is eating smaller more frequent snacks. CIWAS= 5 throughout this shift, no stepan signs of withdrawal occuring.
[2024-12-14] MEDS: THIAMINE 100 MG TABLET PO (18:58)
[2024-12-14] MEDS: ENOXAPARIN 40 MG/0.4 ML INJ SUBCUT (20:49)
--- NOTE | 2024-12-15 01:27 | PC.NURSE ---
Care note [id number]: Pt noted to be A&Ox4 and able to make needs known. She transfers/ambulates independently in room and in hallway. VSS- pt afebrile and on RA. PRN pain medications utilized due to c/o pain to upper abdomen. Pt tolerating regular diet and is continent of bowel and bladder. CIWA score of 5 with 1900 VS. Pt has two IVs in place which are patent. IV fluid administered per order. CMS intact. Report given to DAREN Salcido to assume care.
[2024-12-15] MEDS: OXYCODONE 5 MG TABLET PO ×2 (02:40→07:32)
[2024-12-15 02:41] VITALS: BP 136/89; PULSE 80; RESP 16; TEMP 36.6; O2SAT 97
--- NOTE | 2024-12-15 04:15 | PC.NURSE ---
Shift note: Patient tolerated regular without nausea, vomiting or increase abdominal pain. Pain has been well tolerated. Only x1 pain medication requested. Attempted to wean off oxygen at 0230 but O2 desaturated especially hen sleeping. CWAIR negative. Patient had adequate sleep. Vitally stable.
[2024-12-15] MEDS: OMEPRAZOLE 20 MG CAPSULE DR 40 MG PO (06:22)
[2024-12-15 07:30] VITALS: PULSE 86; RESP 16
[2024-12-15] MEDS: FOLIC ACID 1 MG TABLET PO (07:31)
[2024-12-15] MEDS: MULTIVITAMIN/MINERALS 1 TABLET 1 TAB PO (07:32)
[2024-12-15] MEDS: FAMOTIDINE 20 MG TABLET PO (07:32)
[2024-12-15 08:05] VITALS: PULSE 89
[2024-12-15 08:07] VITALS: BP 145/84; PULSE 86; RESP 16; TEMP 37; O2SAT 96
[2024-12-15] MEDS: polyethylene glycoL 3350 17 GM PACK PO (10:01)
[2024-12-15] MEDS: ACETAMINOPHEN 325 MG TABLET 975 MG PO (10:01)
--- NOTE | 2024-12-15 10:27 | NUTR.NU ---
RDN with diet education related to recurrent pancreatitis. Patient admitted with pancreatitis, suspect alcohol induced. Current weight 195lb 2oz; Height 5ft 10in; BMI 28.0 kg/m2. Weight history has been stable. Current diet is Regular. Patient is tolerating solid foods at this time. RDN visited with patient and offered diet education related to pancreatitis. Patient was provided diet education on a low fat diet. Discussed foods to include and foods to avoid, limiting to 30 grams of fat per day for the next week or as needed. Encouraged small, frequent meals 4-6 times daily as this is better tolerated. Education also provided following a low fat diet (about 60 grams/day) long-term. Verbal and written information as well as a sample menu provided from [facility]. Patient verbalized understanding. RDN's contact information was provided and patient was encouraged to contact RDN with questions.
[2024-12-15 11:42] VITALS: BP 145/80; PULSE 78; RESP 16; TEMP 36.8; O2SAT 95
--- NOTE | 2024-12-15 12:59 | PM.DS1 ---
DS: Providers Provider Date Seen: 12/15/24 Date of admission: 12/12/24 15:59 Primary care physician: Not a Local Provider Admitting Clinician: Julio Joseph MD Consults: 12/12/24 15:59 Consult to Physical Therapy [CONS] Routine Comment: Reason(s) for PT Consult:: Evaluate and Treat Any Restrictions?:: Wt Bearing as Tolerated Attending Physician on discharge: Tami Morris MD DS: Diagnosis Discharge Diagnosis (1) Pancreatitis: Status: Acute Problem details: 07/14/2016 - following episode of binge drinking ([place] records) 04/27/2024 - alcohol induced ([place] records) 12/12/2024 - suspect alcohol induced: She has had 2 previous episodes both alcohol related. She continues to drink heavily and alcohol is the most likely cause. She is not painful in the right upper quadrant and right upper quadrant ultrasound shows an unremarkable gallbladder. While AST is mildly elevated I think this is likely related to alcohol use. There is no evidence of cholelithiasis as a cause of pancreatitis. Triglycerides are unremarkable. 12/13/2024: Patient is tolerating clear liquid diet will advance it to full fluid diet today. 12/14: Advanced to regular diet, will decrease the rate of IV fluids. (2) Pancreatic cyst: Status: Acute Problem details: While her white count is mildly elevated, she has not had any fever and CRP and procalcitonin are unremarkable. I do not think this fluid collection it in the pancreas is infected. I will hold off on treating with antibiotics at this time and treat for acute pancreatitis while monitoring. Have spoken with the patient and her about the need for follow-up as an outpatient and have recommended that she go to [facility] as an outpatient for further imaging and consultation. (3) Alcohol abuse: Status: Acute Problem details: - ongoing heavy alcohol use despite 2 previous alcohol related pancreatitis episodes - start CIWA protocol as anticipate she will likely go through alcohol withdrawal - obtain urine tox screen - start oral thiamin, continue oral folic acid and multivitamin - social work consult (4) Dehydration: Status: Acute Problem details: - likely due to pancreatitis and 3rd spacing - start maintenance IV fluids at 125 mL/hour, since gallbladder ultrasound is unremarkable for cholelithiasis or cholecystitis and she will therefore not need surgery, start clear liquid diet (5) Hypomagnesemia: Status: Acute Problem details: - replace IV and recheck in the morning (6) Elevated LFTs: Status: Acute Problem details: - mildly elevated AST, suspect from alcohol use, recheck in the morning (7) Elevated MCV: Status: Acute Problem details: - suspect due to alcohol use, monitor DS: Summary Hospital Course Hospital Course: Doris Kidd is a 44 year old female with a h/o recurrent alcohol-related pancreatitis who presented through the ER with a picture of pancreatitis. CT scan was done and it supports the diagnosis of pancreatitis. In addition it showed a cystic lesion at the superior margin of the pancreatic head measuring 2.8 centimeters consistent with a pancreatic cyst or chronic pseudocyst. Patient's gallbladder and common bile ducts were unremarkable and the likely cause of pancreatitis is alcohol use. We started treatment with IV fluids and patient has improved immensely she is back to regular diet without issues and is ready to go home. I discussed the finding of pancreatic cyst with the pt and stressed on the need to f/up w/ her primary care physician and discuss referral to a GI specialist to follow up this lesion. Status at Discharge Functional status at discharge: independent ambulation Overall status at discharge: patient is back to baseline Time Spent with Patient Time attestation: Total time spent providing and/or coordinating discharge services: 55 min Exam Narrative: Exam Narrative: Physical exam GENERAL: Comfortable, no acute distress. HEAD AND NECK: Atraumatic, normocephalic CARDIOVASCULAR: RRR. Normal S1, S2. No murmurs. RESPIRATORY: Clear to auscultation B/L. Good air entry B/L. No wheezes or rhonchi. GASTROINTESTINAL: Not distended, not tender to palpation. NEUROLOGY: Alert, awake, oriented X 3. Normal speech. PSYCH: Normal mood, normal affect. Const: Vital Signs, click to edit/add: Vital Signs - 24 hr 12/14/24 14:47 12/14/24 15:00 12/14/24 15:00 Temperature 98 F Pulse Rate Pulse Rate [Right Pulse Oximeter] 86 Respiratory Rate 18 18 Blood Pressure [Ri ght Arm] Pulse Oximetry 96 Oxygen Delivery Me thod Room Air Oxygen Flow Rate 12/14/24 15:00 12/14/24 15:00 12/14/24 15:00 Temperature 98.7 F 98.7 F Pulse Rate 76 Pulse Rate [Right Pulse Oximeter] 90 90 Respiratory Rate 18 18 Blood Pressure [Ri ght Arm] 130/90 H 130/90 H Pulse Oximetry 96 96 Oxygen Delivery Me thod Room Air Room Air Oxygen Flow Rate 12/14/24 16:00 12/14/24 19:40 12/14/24 19:44 Temperature 98.1 F 98.1 F Pulse Rate Pulse Rate [Right Pulse Oximeter] 76 76 Respiratory Rate 16 16 Blood Pressure [Ri ght Arm] 131/80 131/80 Pulse Oximetry 96 96 96 Oxygen Delivery Me thod Room Air Room Air Oxygen Flow Rate 12/14/24 22:59 12/14/24 23:00 12/14/24 23:00 Temperature 98.6 F Pulse Rate 67 Pulse Rate [Right Pulse Oximeter] 94 76 Respiratory Rate 16 16 Blood Pressure [Ri ght Arm] 132/69 Pulse Oximetry 96 Oxygen Delivery Me thod Nasal Cannula Oxygen Flow Rate 1 12/14/24 23:00 12/15/24 02:41 12/15/24 07:30 Temperature 97.9 F Pulse Rate Pulse Rate [Right Pulse Oximeter] 80 86 Respiratory Rate 16 16 16 Blood Pressure [Ri ght Arm] 136/89 Pulse Oximetry 96 97 Oxygen Delivery Me thod Nasal Cannula Room Air Oxygen Flow Rate 1 12/15/24 08:05 12/15/24 08:07 12/15/24 08:07 Temperature 98.6 F Pulse Rate 89 Pulse Rate [Right Pulse Oximeter] 86 Respiratory Rate 16 16 Blood Pressure [Ri ght Arm] 145/84 H Pulse Oximetry 96 96 Oxygen Delivery Me thod Room Air Room Air Oxygen Flow Rate 12/15/24 11:42 Temperature 98.2 F Pulse Rate Pulse Rate [Right Pulse Oximeter] 78 Respiratory Rate 16 Blood Pressure [Ri ght Arm] 145/80 H Pulse Oximetry 95 Oxygen Delivery Me thod Room Air Oxygen Flow Rate DS: Data Imaging CT scan - abdomen: Radiologist's impression: INDICATION: Upper abdominal and back pain TECHNIQUE: Axial images were obtained from the diaphragm to the pubic symphysis. Reformats were obtained in the coronal and sagittal plane. IV Contrast: 89 cc Isovue 370 Oral Contrast: None COMPARISON: None. FINDINGS: Lower chest: Calcified granuloma right middle lobe. Liver: Normal in contour with focal fat adjacent to the falciform ligament and gallbladder fossa. Gallbladder and bile ducts: Unremarkable. No stones or inflammation. No biliary dilatation. Spleen: Calcifications in the spleen consistent with old granulomatous disease. Pancreas: Fat stranding surrounding the pancreas with free fluid in the pancreatic bed extending into the left pericolic gutter. Exophytic cyst at the superior margin of the pancreatic head measuring 2.8 centimeters (series 2, image 52; series 4, image 33). Adrenal glands: Unremarkable. No nodules. Kidneys: Unremarkable. No masses, stones, or hydronephrosis. Vasculature: No abdominal aortic aneurysm. Superior mesenteric vein and portal vein patent. Mild narrowing of the distal splenic vein although the splenic vein is still patent. GI tract: The stomach is unremarkable. No dilated loops of large or small intestine. Status post ventral mesh in the epigastric region. Pelvis: Intrauterine device present. Bones: Status post L4 through S1 posterior fusion. IMPRESSION: Peripancreatic edema and fat stranding consistent with acute interstitial pancreatitis. Cystic lesion at the superior margin of the pancreatic head measuring 2.8 centimeters consistent with a pancreatic cyst or chronic pseudocyst. Please note that all CT scans at this facility use dose modulation, iterative reconstruction, and/or weight-based dosing when appropriate to reduce radiation dose to as low as reasonably achievable. Dictated by Efrem Junior MD @ 12/12/2024 10:56:20 AM Discharge Plan Discharge Disposition: Home, Self-Care Date of Admission: 12/12/24 15:59 Attending Provider on Discharge: Tami Morris Primary Care Provider: Provider,Not a Local Condition: Stable Anticipated Discharge Date/Time: 12/15/24 12:45 Discharge Medications: New acetaminophen 325 mg Tablet 650 mg PO Q8H PRN (Reason: pain or fever) 10 Days Qty: 30 0RF polyethylene glycol 3350 [Miralax] 17 gram Powder In Packet 17 g PO DAILY PRN (Reason: Constipation) 7 Days Qty: 7 0RF Continued famotidine [Pepcid] 20 mg tablet 20 mg PO DAILY Discharge Orders: Discharge Order (Routine); Ordered 12/15/24 Ordered By: Tami Morris Patient Education: Acetaminophen (By mouth), Polyethylene Glycol 3350 (By mouth) (Miralax, Healthylax..., Pancreatitis (IP), Alcohol Use Disorder (DC) Additional Instructions: -You need to follow-up with your primary care physician within 1-2 weeks. -CT scan showed Cystic lesion at the superior margin of the pancreatic head measuring 2.8 centimeters consistent with a pancreatic cyst or chronic pseudocyst. -you need to discuss this finding of pancreatic cyst with your primary care physician and discuss referral to a GI specialist to follow up with this lesion. Activity Level: No Restrictions Discharge Diet: Regular Follow Up Appointments: Provider,Not a Local [Primary Care Provider] - (You need to follow-up with your primary care physician within 1-2 weeks. -CT scan showed Cystic lesion at the superior margin of the pancreatic head measuring 2.8 centimeters consistent with a pancreatic cyst or chronic pseudocyst. -you need to discuss this finding of pancreatic cyst with your primary care physician and discuss referral to a GI specialist to follow up with this lesion.) Forms: [employer] Info Instructions
[2024-12-15] MEDS: SODIUM CHLORIDE 0.9 % (FLUSH) 10 ML SYRINGE 5 ML IVF (13:03)
[2024-12-15] MEDS: ONDANSETRON 2 MG/ML inj 4 MG IVP (13:03)
--- NOTE | 2024-12-15 14:07 | PC.NURSE ---
discharge. pt has been very pleasant. she is alert x4. midupper abd pain. 5-810. pt is getting po pain meds. with some relief. pt has been up independently in room and in hallway. PT worked with her. Pt tolerating regular diet and she is continent of bowel and bladder. CIWA score of [address] which are patent. she is eating, drinking and voiding. she had a little nausea with lunch but we talked about better choices with meals with and pain. went over discharge packet with pt and .
== END 2024-12-15 13:15 | disposition home or self-care (01) | DRG 439 ==
LOC: ED 12:37 → MEDSURG 13:33
PROVIDERS: Student in an Organized Health Care Education/Training Program; Admitting Provider Internal Medicine; Emergency Provider Family Medicine; Visit Provider Family Medicine
DX: K85.20 Alcohol induced acute pancreatitis without necrosis or infection (principal); F10.188 Alcohol abuse with other alcohol-induced disorder; F33.1 Major depressive disorder, recurrent, moderate; K86.2 Cyst of pancreas; K86.3 Pseudocyst of pancreas; E86.0 Dehydration; F11.21 Opioid dependence, in remission; F41.1 Generalized anxiety disorder; E83.42 Hypomagnesemia; R74.01 Elevation of levels of liver transaminase levels; R71.8 Other abnormality of red blood cells
CPT/HCPCS: 36415; 74177; 76705; 80048; 80053; 80076; 80306; 81001; 82803; 83605; 83690; 83735; 83880; 84145; 84478; 84484; 84703; 85025; 85027; 85610; 86140; 87086; 94761; 97116; 97162; 97530; 99284; 99285; A9153; A9270; J1171; J1650; J2270; J2405; J3010; J3475; J7030; J7120; Q9967